=== PATIENT | female | born 1945 | race Native Hawaiian/Other Pacific Islander ===

== ENCOUNTER 2017-07-18 17:29 | Inpatient (IN) | payer MEDICARE ==
[2017-07-18 15:35] VITALS: BMI 23.3
[2017-07-18] MEDS: Hydrocortisone 2.5% (Rectal) CREAM PR SCH (21:41)
[2017-07-18] MEDS: Insulin Lispro (humaLOG) 100 Units/ml Inj SC SCH (21:44)
[2017-07-19] MEDS ORDERED: Dextrose 50% SYRINGE Inj (50 ml) IV PRN (07:04)
[2017-07-19] MEDS ORDERED: Glucagon Recombinant 1 mg Inj IM PRN (07:04)
[2017-07-19] MEDS: Hydrocortisone 2.5% (Rectal) CREAM PR SCH ×2 (07:07→17:18)
[2017-07-19] MEDS: Insulin Lispro (humaLOG) 100 Units/ml Inj SC SCH ×2 (07:11→21:20)
[2017-07-19 07:51] LABS: MEAN CELL VOLUME 89.3 fl (81.0-99.0); MEAN CORPUSCULAR HEMOGLOBIN 30.5 pg (27.0-31.0); MEAN CORPUSCULAR HGB CONC 34.2 g/dL (33.0-37.0); RED CELL DISTRIBUTION WIDTH 13.2 % (11.5-14.5)
[2017-07-19 08:25] LABS: BLOOD UREA NITROGEN 27 mg/dl (7-17); CALCIUM 8.8 mg/dL (8.4-10.2); CARBON DIOXIDE 24 mmol/L (22-30); CHLORIDE 100 mmol/L (98-107); GFR AFRICAN-AMERICAN > 60; GLUCOSE,RANDOM 252 mg/dL (65-105); POTASSIUM 4.3 MMOL/L (3.6-5.0); SODIUM 136 mmol/l (132-148)
[2017-07-19] MEDS: Enoxaparin 40 mg Syringe SC SCH (08:33)
[2017-07-19] MEDS: Pantoprazole 40 mg EC Tab PO SCH (08:34)
[2017-07-19] MEDS: Magnesium Oxide 400 mg Tab UD PO SCH ×2 (08:35→17:20)
[2017-07-19] MEDS: POLYETHYLENE GLYCOL 3350 17 GM/Dose PACKET PO SCH ×2 (08:35→17:20)
[2017-07-19] MEDS: Potassium Chloride 20 mEq ER Tab PO SCH (08:36)
[2017-07-19] MEDS: Proshield Plus GEL TOP SCH ×3 (10:00→21:21)
--- NOTE | 2017-07-19 17:42 | PCM.OPOC ---
Physiatry Overall Plan of Care - Overall Plan of Care Estimated Length of Stay in Weeks: 3 Rehab Impairment: Mobility, Gait, Speech, Balance, Coordination Etiologic Diagnosis: Cerebrovascular Accident Rehab/Medical Prognosis: Fair - Anticipated Interventions Physical Therapy:: Yes Occupational Therapy:: Yes Speech Therapy:: Yes Recreational Therapy:: Yes - Therapy Goals Bed Mobility: Supervision Ambulation: Supervision Functional Positional Changes:: Supervision - Discharge Plan Identification of Barriers to Discharge: Cognition, Home Situation Discharge Destination: Home
--- NOTE | 2017-07-19 17:44 | CP.PCM.CON ---
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 Review of Systems - Constitutional Constitutional: absent: Anorexia, Chills - EENT Eyes: absent: Change in Vision Ears: absent: Decreased Hearing Nose/Mouth/Throat: absent: Nasal Congestion - Cardiovascular Cardiovascular: absent: Chest Pain - Respiratory Respiratory: absent: Dyspnea - Gastrointestinal Gastrointestinal: absent: Abdominal Pain, Belching - Musculoskeletal Musculoskeletal: absent: Arthralgias, Back Pain - Integumentary Integumentary: absent: Bleeding Lesions - Neurological Neurological: Abnormal Gait, Weakness. absent: Abnormal Hearing, Abnormal Movements, Headaches Past Patient History - Infectious Disease Hx of Infectious Diseases: None - Past Medical History & Family History Past Medical History?: Yes - Past Social History Smoking Status: Never Smoked Alcohol: None Drugs: Denies Home Situation {Lives}: Alone (4 steps) - CARDIAC Hx Hypertension: Yes - PULMONARY Hx Chronic Obstructive Pulmonary Disease (COPD): No - NEUROLOGICAL HX Cerebrovascular Accident: Yes Hx Syncope: Yes - HEENT Hx HEENT Problems: Yes Other/Comment: R eye lasik sx, wears glasses - RENAL Hx Chronic Kidney Disease: No Hx Renal Failure: No - ENDOCRINE/METABOLIC Hx Diabetes Mellitus Type 2: Yes - HEMATOLOGICAL/ONCOLOGICAL Hx Blood Disorders: No Hx AIDS: No Hx Human Immunodeficiency Virus (HIV): No - INTEGUMENTARY Hx Dermatological Problems: No - MUSCULOSKELETAL/RHEUMATOLOGICAL Hx Musculoskeletal Disorders: Yes Hx Arthritis: Yes Hx Falls: No Hx Unsteady Gait: Yes - GASTROINTESTINAL Hx Gastrointestinal Disorders: Yes Hx Constipation: Yes Hx Hemorrhoids: Yes - GENITOURINARY/GYNECOLOGICAL Hx Genitourinary Disorders: No Hx Incontinence: Yes (Post CVA) - PSYCHIATRIC Hx Psychophysiologic Disorder: No Hx Substance Use: No - SURGICAL HISTORY Hx Surgeries: Yes Hx Appendectomy: Yes Hx Cardiac Catheterization: Yes Hx Section: Yes Hx Coronary Stent: Yes Hx Eye Surgery: Yes (R eye lasik sx) - ANESTHESIA Hx Anesthesia: Yes Hx Anesthesia Reactions: No Hx Malignant Hyperthermia: No Has any member of the family had a problem w/ anesthesia?: No Meds Allergies/Adverse Reactions: Allergies Allergy/AdvReac Type Severity Reaction Status Date / Time No Known Allergies Allergy Verified 07/14/17 12:31 - Medications Medications: Current Medications Aspirin (Aspirin Chewable) 81 mg PO DAILY [facility] Last Admin: 07/19/17 08:34 Dose: 81 mg Atorvastatin Calcium (Lipitor) 80 mg PO HS [facility] Last Admin: 07/18/17 21:43 Dose: 80 mg Carvedilol (Coreg) 3.125 mg PO DAILY [facility] Last Admin: 07/19/17 08:35 Dose: 3.125 mg Clopidogrel Bisulfate (Plavix) 75 mg PO DAILY [facility] Last Admin: 07/19/17 08:35 Dose: 75 mg Dextrose (Dextrose 50% Inj) 0 ml IV STAT PRN; Protocol PRN Reason: Hypoglycemia Protocol Dextrose (Glutose 15) 0 gm PO ONCE PRN; Protocol PRN Reason: Hypoglycemia Protocol Dimethicone (Proshield Plus Skin Protectant) 1 applic TOP Q8 [facility] Last Admin: 07/19/17 17:17 Dose: 1 applic Docusate Sodium (Colace) 100 mg PO DAILY [facility] Last Admin: 07/19/17 08:34 Dose: 100 mg Enoxaparin Sodium (Lovenox) 40 mg SC DAILY [facility] PRN Reason: Protocol Last Admin: 07/19/17 08:33 Dose: 40 mg Furosemide (Lasix) 20 mg PO DAILY [facility] Last Admin: 07/19/17 08:33 Dose: 20 mg Glucagon (Glucagen Diagnostic Kit) 0 mg IM STAT PRN; Protocol PRN Reason: Hypoglycemia Protocol Hydralazine HCl (Apresoline) 10 mg PO TID PRN PRN Reason: SBP 160 AND ABOVE Hydrocortisone (Anusol-Hc) 1 applic [place] 0600,1800 [facility] Last Admin: 07/19/17 17:18 Dose: 1 applic Insulin Human Lispro (Humalog) 0 units SC 0600,2100 [facility] PRN Reason: Protocol Last Admin: 07/19/17 07:11 Dose: 3 units Losartan Potassium (Cozaar) 100 mg PO DAILY [facility] Last Admin: 07/19/17 08:35 Dose: 100 mg Magnesium Oxide (Mag-Ox) 400 mg PO BID [facility] Last Admin: 07/19/17 17:20 Dose: 400 mg Metformin HCl (Glucophage) 1,000 mg PO BIDWM [facility] Last Admin: 07/19/17 17:19 Dose: 1,000 mg Pantoprazole Sodium (Protonix Ec Tab) 40 mg PO DAILY [facility] Last Admin: 07/19/17 08:34 Dose: 40 mg Polyethylene Glycol (Miralax) 17 gm PO BID [facility] Last Admin: 07/19/17 17:20 Dose: Not Given Potassium Chloride (K-Dur 20 Meq Er Tab) 20 meq PO BRK [facility] Last Admin: 07/19/17 08:36 Dose: 20 meq Sitagliptin Phosphate (Januvia) 100 mg PO DAILY [facility] Last Admin: 07/19/17 08:35 Dose: 100 mg Physical Exam - Constitutional Appears: Non-toxic, No Acute Distress - Head Exam Head Exam: ATRAUMATIC, NORMAL INSPECTION, NORMOCEPHALIC - Eye Exam Eye Exam: EOMI - ENT Exam ENT Exam: Mucous Membranes Moist - Respiratory Exam Respiratory Exam: NORMAL BREATHING PATTERN - Cardiovascular Exam Cardiovascular Exam: REGULAR RHYTHM - GI/Abdominal Exam GI & Abdominal Exam: absent: Distended, Firm - Extremities Exam Extremities exam: Negative for: calf tenderness, joint swelling - Neurological Exam Neurological exam: Alert, Oriented x3 - Psychiatric Exam Psychiatric exam: Flat Affect Results - Vital Signs Recent Vital Signs: Last Vital Signs Temp 98.4 F 07/19/17 08:46 Pulse 87 07/19/17 10:15 Resp 19 07/19/17 08:46 BP 147/92 H 07/19/17 10:15 Pulse Ox 98 07/19/17 08:52 - Labs Result Diagrams: 07/19/17 07:41 07/19/17 07:41 Labs: Laboratory Results - last 24 hr 07/18/17 07/19/17 07/19/17 21:05 07:02 07:41 WBC 9.0 RBC 4.37 Hgb 13.3 Hct 39.0 MCV 89.3 MCH 30.5 MCHC 34.2 RDW 13.2 Plt Count 273 Sodium Potassium Chloride Carbon Dioxide Anion Gap BUN Creatinine Est GFR ( Amer) Est GFR (Non-Af Amer) POC Glucose (mg/dL) 231 H 254 H Random Glucose Calcium 07/19/17 07/19/17 07:41 15:58 WBC RBC Hgb Hct MCV MCH MCHC RDW Plt Count Sodium 136 Potassium 4.3 Chloride 100 Carbon Dioxide 24 Anion Gap 16 BUN 27 H Creatinine 0.8 Est GFR ( Amer) > 60 Est GFR (Non-Af Amer) > 60 POC Glucose (mg/dL) 226 H Random Glucose 252 H Calcium 8.8 Assessment & Plan - Assessment and Plan (Free Text) Assessment: left LUIS distribution infarct with right HP PT/OT to continue to help increase functional independence Team conference for d/c planning Pain: controlled Vascular: no evidence of DVT GI: No evidence of constipation or diarrhea 3/5 right UE 2/5 right LE Patient is an excellent acute rehabilitation candidate and will have focused speech, PT, OT and recreational therapy to help facilitate a safe and appropriate d/c plan Impairment code: 01.2
[2017-07-20] MEDS: Hydrocortisone 2.5% (Rectal) CREAM PR SCH ×2 (06:46→17:36)
[2017-07-20] MEDS: Proshield Plus GEL TOP SCH ×3 (06:46→22:10)
[2017-07-20] MEDS: Insulin Lispro (humaLOG) 100 Units/ml Inj SC SCH ×2 (06:47→22:06)
[2017-07-20] MEDS: Enoxaparin 40 mg Syringe SC SCH (08:36)
[2017-07-20] MEDS: Magnesium Oxide 400 mg Tab UD PO SCH ×2 (08:37→17:36)
[2017-07-20] MEDS: Potassium Chloride 20 mEq ER Tab PO SCH (08:37)
[2017-07-20] MEDS: Pantoprazole 40 mg EC Tab PO SCH (08:38)
[2017-07-20] MEDS: POLYETHYLENE GLYCOL 3350 17 GM/Dose PACKET PO SCH ×2 (08:41→17:37)
[2017-07-20] MEDS: GlipiZIDE 5 mg SR Tab PO SCH (13:05)
--- NOTE | 2017-07-20 14:49 | CP.PCM.HP ---
<Tabitha Pandey - Last Filed: 07/20/17 15:28> History of Present Illness - History of Present Illness History of Present Illness: 72 y/o F with PMHx of DM type 2, HTN, HLD, who as per records recently suffered a left CVA with resultant right Hemiparesis affecting lower extremity more than her right upper extremity transferred from [facility] on 07/18/17. Patient was seen and examined with attending, Dr. Camarena, this morning. Patient feels well, and denies Cp, SOB, N/V, headaches, dizziness. Patient states a history of urinary incontinence, but denies urinary symptoms. Reports regular bowel movements. PMD: Dr. Camarena Present on Admission - Present on Admission Any Indicators Present on Admission: No History of DVT/PE: No Urinary Catheter: No Decubitus Ulcer Present: No Review of Systems - Review of Systems All systems: reviewed and no additional remarkable complaints except (all negative except as per HPI) Past Patient History - Infectious Disease Hx of Infectious Diseases: None - Past Medical History & Family History Past Medical History?: Yes - Past Social History Smoking Status: Never Smoked Alcohol: None Drugs: Denies Home Situation {Lives}: Alone (4 steps) - CARDIAC Hx Hypertension: Yes - PULMONARY Hx Chronic Obstructive Pulmonary Disease (COPD): No - NEUROLOGICAL HX Cerebrovascular Accident: Yes Hx Syncope: Yes - HEENT Hx HEENT Problems: Yes Other/Comment: R eye lasik sx, wears glasses - RENAL Hx Chronic Kidney Disease: No Hx Renal Failure: No - ENDOCRINE/METABOLIC Hx Diabetes Mellitus Type 2: Yes - HEMATOLOGICAL/ONCOLOGICAL Hx Blood Disorders: No Hx AIDS: No Hx Human Immunodeficiency Virus (HIV): No - INTEGUMENTARY Hx Dermatological Problems: No - MUSCULOSKELETAL/RHEUMATOLOGICAL Hx Musculoskeletal Disorders: Yes Hx Arthritis: Yes Hx Falls: No Hx Unsteady Gait: Yes - GASTROINTESTINAL Hx Gastrointestinal Disorders: Yes Hx Constipation: Yes Hx Hemorrhoids: Yes - GENITOURINARY/GYNECOLOGICAL Hx Genitourinary Disorders: No Hx Incontinence: Yes (Post CVA) - PSYCHIATRIC Hx Psychophysiologic Disorder: No Hx Substance Use: No - SURGICAL HISTORY Hx Surgeries: Yes Hx Appendectomy: Yes Hx Cardiac Catheterization: Yes Hx Section: Yes Hx Coronary Stent: Yes Hx Eye Surgery: Yes (R eye lasik sx) - ANESTHESIA Hx Anesthesia: Yes Hx Anesthesia Reactions: No Hx Malignant Hyperthermia: No Has any member of the family had a problem w/ anesthesia?: No Meds Allergies/Adverse Reactions: Allergies Allergy/AdvReac Type Severity Reaction Status Date / Time No Known Allergies Allergy Verified 07/14/17 12:31 Physical Exam - Constitutional Appears: Non-toxic, No Acute Distress - Eye Exam Eye Exam: EOMI, Normal appearance - ENT Exam ENT Exam: Mucous Membranes Moist - Respiratory Exam Respiratory Exam: Clear to Auscultation Bilateral, NORMAL BREATHING PATTERN. absent: Rales, Rhonchi, Wheezes, Respiratory Distress, Stridor - Cardiovascular Exam Cardiovascular Exam: REGULAR RHYTHM, RRR, +S1, +S2 - GI/Abdominal Exam GI & Abdominal Exam: Normal Bowel Sounds, Soft. absent: Distended, Rigid, Tenderness - Extremities Exam Extremities exam: Positive for: normal inspection. Negative for: calf tenderness, pedal edema - Back Exam Back exam: NORMAL INSPECTION. absent: CVA tenderness (L), CVA tenderness (R) - Neurological Exam Neurological exam: Abnormal Gait, Alert, Motor Sensory Deficit (right sided weakness), Oriented x3 - Skin Skin Exam: Dry, Intact, Normal Color Results - Vital Signs Recent Vital Signs: Last Vital Signs Temp 98.5 F 07/20/17 08:40 Pulse 80 07/20/17 08:40 Resp 20 07/20/17 08:40 BP 153/71 H 07/20/17 08:40 Pulse Ox 98 07/20/17 08:40 - Labs Result Diagrams: 07/19/17 07:41 07/19/17 07:41 Labs: Laboratory Results - last 24 hr 07/19/17 07/19/17 07/20/17 15:58 20:51 06:45 POC Glucose (mg/dL) 226 H 281 H 177 H Assessment & Plan (1) Status post CVA Assessment and Plan: PT eval and Treatment OT eval and treatment c/w aspirin, plavix c/w statin c/w BP control Status: Acute (2) Hypertension Assessment and Plan: c/w current management Status: Chronic (3) Diabetes mellitus type 2 in nonobese Assessment and Plan: c/w Metformin, and Januvia start Glipizide SR 5 mg PO daily Hypoglycemic protocol accucheck f/u hgbA1C, lipid profile, TSH Status: Chronic (4) DVT prophylaxis Assessment and Plan: Lovenox 40 mg SC daily Status: Acute - Date & Time Date: 07/20/17 Time: 08:05 <Sammy Camarena - Last Filed: 07/23/17 19:51> Results - Vital Signs Recent Vital Signs: Last Vital Signs Temp 96.4 F L 07/23/17 08:18 Pulse 79 07/23/17 08:20 Resp 19 07/23/17 08:18 BP 128/60 07/23/17 10:02 Pulse Ox 99 07/23/17 08:18 - Labs Result Diagrams: 07/22/17 06:26 07/22/17 06:26 Labs: Laboratory Results - last 24 hr 07/22/17 07/22/17 07/23/17 20:55 23:27 02:06 POC Glucose (mg/dL) 73 70 109 07/23/17 05:55 POC Glucose (mg/dL) 129 H Assessment & Plan - Assessment and Plan (Free Text) Plan: I was present during evaluation and discussed with Dr Pandey re plans of care and treatment. Sammy Camarena M.D.
[2017-07-21] MEDS: Hydrocortisone 2.5% (Rectal) CREAM PR SCH ×2 (06:54→18:01)
[2017-07-21] MEDS: Proshield Plus GEL TOP SCH ×3 (06:55→21:57)
[2017-07-21] MEDS: Insulin Lispro (humaLOG) 100 Units/ml Inj SC SCH ×2 (07:00→21:56)
[2017-07-21] MEDS: Enoxaparin 40 mg Syringe SC SCH (08:51)
[2017-07-21] MEDS: GlipiZIDE 5 mg SR Tab PO SCH (08:51)
[2017-07-21] MEDS: Potassium Chloride 20 mEq ER Tab PO SCH (08:52)
[2017-07-21] MEDS: POLYETHYLENE GLYCOL 3350 17 GM/Dose PACKET PO SCH ×2 (08:52→18:43)
[2017-07-21] MEDS: Pantoprazole 40 mg EC Tab PO SCH (08:55)
[2017-07-21] MEDS: Magnesium Oxide 400 mg Tab UD PO SCH ×2 (08:55→18:03)
--- NOTE | 2017-07-21 10:16 | CP.PCM.PN ---
<Tabitha Pandey - Last Filed: 07/21/17 14:10> Subjective - Date & Time of Evaluation Date of Evaluation: 07/21/17 Time of Evaluation: 08:45 - Subjective Subjective: Patient seen and examined in Acute Rehab unit this morning. Patient feels well, and denies any complains at this evaluation Afebrile, VS stable WNL No events overnight Objective - Vital Signs/Intake and Output Vital Signs (last 24 hours): Temp Pulse Resp BP Pulse Ox 98.0 F 64 20 133/63 98 07/21/17 08:42 07/21/17 08:53 07/21/17 08:42 07/21/17 08:53 07/21/17 08:42 - Medications Medications: Current Medications Aspirin (Aspirin Chewable) 81 mg PO DAILY [facility] Last Admin: 07/21/17 08:52 Dose: 81 mg Atorvastatin Calcium (Lipitor) 80 mg PO HS [facility] Last Admin: 07/20/17 22:10 Dose: 80 mg Carvedilol (Coreg) 3.125 mg PO DAILY [facility] Last Admin: 07/21/17 08:53 Dose: 3.125 mg Clopidogrel Bisulfate (Plavix) 75 mg PO DAILY [facility] Last Admin: 07/21/17 08:51 Dose: 75 mg Dextrose (Dextrose 50% Inj) 0 ml IV STAT PRN; Protocol PRN Reason: Hypoglycemia Protocol Dextrose (Glutose 15) 0 gm PO ONCE PRN; Protocol PRN Reason: Hypoglycemia Protocol Dimethicone (Proshield Plus Skin Protectant) 1 applic TOP Q8 [facility] Last Admin: 07/21/17 06:55 Dose: 1 applic Docusate Sodium (Colace) 100 mg PO DAILY [facility] Last Admin: 07/21/17 08:53 Dose: 100 mg Enoxaparin Sodium (Lovenox) 40 mg SC DAILY [facility] PRN Reason: Protocol Last Admin: 07/21/17 08:51 Dose: 40 mg Furosemide (Lasix) 20 mg PO DAILY [facility] Last Admin: 07/21/17 08:50 Dose: 20 mg Glipizide (Glucotrol Xl) 5 mg PO BRK [facility] Last Admin: 07/21/17 08:51 Dose: 5 mg Glucagon (Glucagen Diagnostic Kit) 0 mg IM STAT PRN; Protocol PRN Reason: Hypoglycemia Protocol Hydralazine HCl (Apresoline) 10 mg PO TID PRN PRN Reason: SBP 160 AND ABOVE Hydrocortisone (Anusol-Hc) 1 applic [place] 0600,1800 [facility] Last Admin: 07/21/17 06:54 Dose: 1 applic Hydrocortisone (Cortizone 1% Cream) 1 applic TOP DAILY [facility] Last Admin: 07/20/17 17:36 Dose: 1 applic Insulin Human Lispro (Humalog) 0 units SC 0600,2100 [facility] PRN Reason: Protocol Last Admin: 07/21/17 07:00 Dose: Not Given Losartan Potassium (Cozaar) 100 mg PO DAILY [facility] Last Admin: 07/20/17 08:36 Dose: 100 mg Magnesium Oxide (Mag-Ox) 400 mg PO BID [facility] Last Admin: 07/21/17 08:55 Dose: 400 mg Metformin HCl (Glucophage) 1,000 mg PO BIDWM [facility] Last Admin: 07/21/17 08:51 Dose: 1,000 mg Pantoprazole Sodium (Protonix Ec Tab) 40 mg PO DAILY [facility] Last Admin: 07/21/17 08:55 Dose: 40 mg Polyethylene Glycol (Miralax) 17 gm PO BID [facility] Last Admin: 07/21/17 08:52 Dose: 17 gm Potassium Chloride (K-Dur 20 Meq Er Tab) 20 meq PO BRK [facility] Last Admin: 07/21/17 08:52 Dose: 20 meq Sitagliptin Phosphate (Januvia) 100 mg PO DAILY [facility] Last Admin: 07/21/17 08:52 Dose: 100 mg - Labs Labs: 07/19/17 07:41 07/19/17 07:41 - Constitutional Appears: Non-toxic, No Acute Distress - ENT Exam ENT Exam: Mucous Membranes Moist - Respiratory Exam Respiratory Exam: Clear to Ausculation Bilateral, NORMAL BREATHING PATTERN - Cardiovascular Exam Cardiovascular Exam: REGULAR RHYTHM, +S1, +S2 - Extremities Exam Extremities Exam: Normal Inspection. absent: Calf Tenderness, Pedal Edema - Skin Skin Exam: Dry, Intact, Normal Color Assessment and Plan (1) Status post CVA Assessment & Plan: c/w PT and OT c/w Speech therapy c/w aspirin, plavix c/w statin c/w BP control Status: Acute (2) Hypertension Assessment & Plan: c/w current management Status: Chronic (3) Diabetes mellitus type 2 in nonobese Assessment & Plan: c/w Metformin, Januvia, and Glipizide SR Hypoglycemic protocol accucheck f/u hgbA1C, lipid profile, TSH Status: Chronic (4) DVT prophylaxis Assessment & Plan: Lovenox 40 mg SC daily Status: Acute <Sammy Camarena - Last Filed: 07/23/17 19:52> Objective - Vital Signs/Intake and Output Vital Signs (last 24 hours): Temp Pulse Resp BP Pulse Ox 96.4 F L 79 19 128/60 99 07/23/17 08:18 07/23/17 08:20 07/23/17 08:18 07/23/17 10:02 07/23/17 08:18 - Medications Medications: Current Medications Aspirin (Aspirin Chewable) 81 mg PO DAILY [facility] Last Admin: 07/23/17 10:02 Dose: 81 mg Atorvastatin Calcium (Lipitor) 80 mg PO HS [facility] Last Admin: 07/22/17 21:36 Dose: 80 mg Carvedilol (Coreg) 3.125 mg PO DAILY [facility] Last Admin: 07/23/17 08:20 Dose: 3.125 mg Clopidogrel Bisulfate (Plavix) 75 mg PO DAILY [facility] Last Admin: 07/23/17 10:03 Dose: 75 mg Dextrose (Dextrose 50% Inj) 0 ml IV STAT PRN; Protocol PRN Reason: Hypoglycemia Protocol Dextrose (Glutose 15) 0 gm PO ONCE PRN; Protocol PRN Reason: Hypoglycemia Protocol Dimethicone (Proshield Plus Skin Protectant) 1 applic TOP Q8 [facility] Last Admin: 07/23/17 14:02 Dose: 1 applic Docusate Sodium (Colace) 100 mg PO DAILY [facility] Last Admin: 07/23/17 08:19 Dose: 100 mg Enoxaparin Sodium (Lovenox) 40 mg SC DAILY [facility] PRN Reason: Protocol Last Admin: 07/23/17 08:22 Dose: 40 mg Furosemide (Lasix) 20 mg PO DAILY [facility] Last Admin: 07/23/17 08:20 Dose: 20 mg Glipizide (Glucotrol Xl) 5 mg PO BRK [facility] Last Admin: 07/23/17 08:19 Dose: 5 mg Glucagon (Glucagen Diagnostic Kit) 0 mg IM STAT PRN; Protocol PRN Reason: Hypoglycemia Protocol Hydrocortisone (Anusol-Hc) 1 applic [place] 0600,1800 [facility] Last Admin: 07/23/17 17:16 Dose: 1 applic Hydrocortisone (Cortizone 1% Cream) 1 applic TOP DAILY [facility] Last Admin: 07/23/17 08:22 Dose: 1 applic Insulin Human Lispro (Humalog) 0 units SC 0600,2100 [facility] PRN Reason: Protocol Last Admin: 07/23/17 07:15 Dose: Not Given Losartan Potassium (Cozaar) 100 mg PO DAILY [facility] Last Admin: 07/23/17 10:02 Dose: 100 mg Magnesium Oxide (Mag-Ox) 400 mg PO BID [facility] Last Admin: 07/23/17 16:01 Dose: 400 mg Metformin HCl (Glucophage) 500 mg PO TIDWM [facility] Last Admin: 07/23/17 16:01 Dose: 500 mg Ondansetron HCl (Zofran Tab) 4 mg PO Q6 PRN PRN Reason: Nausea/Vomiting Pantoprazole Sodium (Protonix Ec Tab) 40 mg PO DAILY [facility] Last Admin: 07/23/17 08:19 Dose: 40 mg Polyethylene Glycol (Miralax) 17 gm PO BID [facility] Last Admin: 07/23/17 16:03 Dose: 17 gm Potassium Chloride (K-Dur 20 Meq Er Tab) 20 meq PO BRK [facility] Last Admin: 07/23/17 08:20 Dose: 20 meq Sitagliptin Phosphate (Januvia) 100 mg PO DAILY [facility] Last Admin: 07/23/17 08:19 Dose: 100 mg - Labs Labs: 07/22/17 06:26 07/22/17 06:26 Assessment and Plan - Assessment and Plan (Free Text) Plan: I was present during evaluation and discussed with Dr Pandey re plans of care and treatment. Sammy Camarena M.D.
--- NOTE | 2017-07-21 15:27 | CP.PCM.PN ---
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 continue current care excellent acute rehab candidate Objective - Vital Signs/Intake and Output Vital Signs (last 24 hours): Temp Pulse Resp BP Pulse Ox 98.0 F 64 20 133/63 98 07/21/17 08:42 07/21/17 08:53 07/21/17 08:42 07/21/17 08:53 07/21/17 08:42 - Medications Medications: Current Medications Aspirin (Aspirin Chewable) 81 mg PO DAILY [facility] Last Admin: 07/21/17 08:52 Dose: 81 mg Atorvastatin Calcium (Lipitor) 80 mg PO HS [facility] Last Admin: 07/20/17 22:10 Dose: 80 mg Carvedilol (Coreg) 3.125 mg PO DAILY [facility] Last Admin: 07/21/17 08:53 Dose: 3.125 mg Clopidogrel Bisulfate (Plavix) 75 mg PO DAILY [facility] Last Admin: 07/21/17 08:51 Dose: 75 mg Dextrose (Dextrose 50% Inj) 0 ml IV STAT PRN; Protocol PRN Reason: Hypoglycemia Protocol Dextrose (Glutose 15) 0 gm PO ONCE PRN; Protocol PRN Reason: Hypoglycemia Protocol Dimethicone (Proshield Plus Skin Protectant) 1 applic TOP Q8 [facility] Last Admin: 07/21/17 06:55 Dose: 1 applic Docusate Sodium (Colace) 100 mg PO DAILY [facility] Last Admin: 07/21/17 08:53 Dose: 100 mg Enoxaparin Sodium (Lovenox) 40 mg SC DAILY [facility] PRN Reason: Protocol Last Admin: 07/21/17 08:51 Dose: 40 mg Furosemide (Lasix) 20 mg PO DAILY [facility] Last Admin: 07/21/17 08:50 Dose: 20 mg Glipizide (Glucotrol Xl) 5 mg PO BRK [facility] Last Admin: 07/21/17 08:51 Dose: 5 mg Glucagon (Glucagen Diagnostic Kit) 0 mg IM STAT PRN; Protocol PRN Reason: Hypoglycemia Protocol Hydralazine HCl (Apresoline) 10 mg PO TID PRN PRN Reason: SBP 160 AND ABOVE Hydrocortisone (Anusol-Hc) 1 applic [place] 0600,1800 [facility] Last Admin: 07/21/17 06:54 Dose: 1 applic Hydrocortisone (Cortizone 1% Cream) 1 applic TOP DAILY [facility] Last Admin: 07/20/17 17:36 Dose: 1 applic Insulin Human Lispro (Humalog) 0 units SC 0600,2100 [facility] PRN Reason: Protocol Last Admin: 07/21/17 07:00 Dose: Not Given Losartan Potassium (Cozaar) 100 mg PO DAILY [facility] Last Admin: 07/20/17 08:36 Dose: 100 mg Magnesium Oxide (Mag-Ox) 400 mg PO BID [facility] Last Admin: 07/21/17 08:55 Dose: 400 mg Metformin HCl (Glucophage) 1,000 mg PO BIDWM [facility] Last Admin: 07/21/17 08:51 Dose: 1,000 mg Pantoprazole Sodium (Protonix Ec Tab) 40 mg PO DAILY [facility] Last Admin: 07/21/17 08:55 Dose: 40 mg Polyethylene Glycol (Miralax) 17 gm PO BID [facility] Last Admin: 07/21/17 08:52 Dose: 17 gm Potassium Chloride (K-Dur 20 Meq Er Tab) 20 meq PO BRK [facility] Last Admin: 07/21/17 08:52 Dose: 20 meq Sitagliptin Phosphate (Januvia) 100 mg PO DAILY [facility] Last Admin: 07/21/17 08:52 Dose: 100 mg - Labs Labs: 07/19/17 07:41 07/19/17 07:41
[2017-07-22] MEDS: Proshield Plus GEL TOP SCH ×3 (05:37→21:38)
[2017-07-22] MEDS: Hydrocortisone 2.5% (Rectal) CREAM PR SCH ×2 (05:39→17:31)
[2017-07-22] MEDS: Insulin Lispro (humaLOG) 100 Units/ml Inj SC SCH ×2 (05:44→21:39)
[2017-07-22 06:33] LABS: HEMATOCRIT 38.1 % (34.0-47.0); MEAN CELL VOLUME 90.4 fl (81.0-99.0); MEAN CORPUSCULAR HEMOGLOBIN 29.8 pg (27.0-31.0); RED CELL DISTRIBUTION WIDTH 13.1 % (11.5-14.5); WHITE BLOOD COUNT 10.4 K/uL (4.8-10.8)
[2017-07-22 06:56] LABS: BLOOD UREA NITROGEN 34 mg/dl (7-17); CALCIUM 9.3 mg/dL (8.4-10.2); CARBON DIOXIDE 26 mmol/L (22-30); CHLORIDE 100 mmol/L (98-107); GFR AFRICAN-AMERICAN > 60; GLUCOSE,RANDOM 103 mg/dL (65-105); POTASSIUM 4.5 MMOL/L (3.6-5.0); SODIUM 136 mmol/l (132-148)
[2017-07-22] MEDS: GlipiZIDE 5 mg SR Tab PO SCH (08:00)
[2017-07-22] MEDS: Potassium Chloride 20 mEq ER Tab PO SCH (09:22)
[2017-07-22] MEDS: Magnesium Oxide 400 mg Tab UD PO SCH ×2 (09:23→16:16)
[2017-07-22] MEDS: POLYETHYLENE GLYCOL 3350 17 GM/Dose PACKET PO SCH ×2 (09:24→16:15)
[2017-07-22] MEDS: Pantoprazole 40 mg EC Tab PO SCH (09:24)
[2017-07-22] MEDS: Enoxaparin 40 mg Syringe SC SCH (09:24)
[2017-07-23] MEDS: Proshield Plus GEL TOP SCH ×3 (05:56→21:54)
[2017-07-23] MEDS: Hydrocortisone 2.5% (Rectal) CREAM PR SCH ×2 (05:59→17:16)
[2017-07-23] MEDS: Insulin Lispro (humaLOG) 100 Units/ml Inj SC SCH ×2 (07:15→21:54)
[2017-07-23] MEDS: Magnesium Oxide 400 mg Tab UD PO SCH ×2 (08:18→16:01)
[2017-07-23] MEDS: GlipiZIDE 5 mg SR Tab PO SCH (08:19)
[2017-07-23] MEDS: Pantoprazole 40 mg EC Tab PO SCH (08:19)
[2017-07-23] MEDS: Potassium Chloride 20 mEq ER Tab PO SCH (08:20)
[2017-07-23] MEDS: Enoxaparin 40 mg Syringe SC SCH (08:22)
[2017-07-23] MEDS: POLYETHYLENE GLYCOL 3350 17 GM/Dose PACKET PO SCH ×2 (08:29→16:03)
--- NOTE | 2017-07-23 11:26 | RAD ---
HISTORY: vomitting COMPARISON: No prior. FINDINGS: BOWEL: Normal. No obstruction. No free air. BONES: Normal. OTHER FINDINGS: None. IMPRESSION: No active disease.
--- NOTE | 2017-07-23 19:57 | CP.PCM.PN ---
Subjective - Date & Time of Evaluation Date of Evaluation: 07/22/17 Time of Evaluation: 09:00 - Subjective Subjective: Patient remains stable Has some vomiting has minimal epigastric pain Has no chest pain or SOB. Objective - Vital Signs/Intake and Output Vital Signs (last 24 hours): Temp Pulse Resp BP Pulse Ox 96.4 F L 79 19 128/60 99 07/23/17 08:18 07/23/17 08:20 07/23/17 08:18 07/23/17 10:02 07/23/17 08:18 - Medications Medications: Current Medications Aspirin (Aspirin Chewable) 81 mg PO DAILY [facility] Last Admin: 07/23/17 10:02 Dose: 81 mg Atorvastatin Calcium (Lipitor) 80 mg PO HS [facility] Last Admin: 07/22/17 21:36 Dose: 80 mg Carvedilol (Coreg) 3.125 mg PO DAILY [facility] Last Admin: 07/23/17 08:20 Dose: 3.125 mg Clopidogrel Bisulfate (Plavix) 75 mg PO DAILY [facility] Last Admin: 07/23/17 10:03 Dose: 75 mg Dextrose (Dextrose 50% Inj) 0 ml IV STAT PRN; Protocol PRN Reason: Hypoglycemia Protocol Dextrose (Glutose 15) 0 gm PO ONCE PRN; Protocol PRN Reason: Hypoglycemia Protocol Dimethicone (Proshield Plus Skin Protectant) 1 applic TOP Q8 [facility] Last Admin: 07/23/17 14:02 Dose: 1 applic Docusate Sodium (Colace) 100 mg PO DAILY [facility] Last Admin: 07/23/17 08:19 Dose: 100 mg Enoxaparin Sodium (Lovenox) 40 mg SC DAILY [facility] PRN Reason: Protocol Last Admin: 07/23/17 08:22 Dose: 40 mg Furosemide (Lasix) 20 mg PO DAILY [facility] Last Admin: 07/23/17 08:20 Dose: 20 mg Glipizide (Glucotrol Xl) 5 mg PO BRK [facility] Last Admin: 07/23/17 08:19 Dose: 5 mg Glucagon (Glucagen Diagnostic Kit) 0 mg IM STAT PRN; Protocol PRN Reason: Hypoglycemia Protocol Hydrocortisone (Anusol-Hc) 1 applic [place] 0600,1800 [facility] Last Admin: 07/23/17 17:16 Dose: 1 applic Hydrocortisone (Cortizone 1% Cream) 1 applic TOP DAILY [facility] Last Admin: 07/23/17 08:22 Dose: 1 applic Insulin Human Lispro (Humalog) 0 units SC 0600,2100 [facility] PRN Reason: Protocol Last Admin: 07/23/17 07:15 Dose: Not Given Losartan Potassium (Cozaar) 100 mg PO DAILY [facility] Last Admin: 07/23/17 10:02 Dose: 100 mg Magnesium Oxide (Mag-Ox) 400 mg PO BID [facility] Last Admin: 07/23/17 16:01 Dose: 400 mg Metformin HCl (Glucophage) 500 mg PO TIDWM [facility] Last Admin: 07/23/17 16:01 Dose: 500 mg Ondansetron HCl (Zofran Tab) 4 mg PO Q6 PRN PRN Reason: Nausea/Vomiting Pantoprazole Sodium (Protonix Ec Tab) 40 mg PO DAILY [facility] Last Admin: 07/23/17 08:19 Dose: 40 mg Polyethylene Glycol (Miralax) 17 gm PO BID [facility] Last Admin: 07/23/17 16:03 Dose: 17 gm Potassium Chloride (K-Dur 20 Meq Er Tab) 20 meq PO BRK [facility] Last Admin: 07/23/17 08:20 Dose: 20 meq Sitagliptin Phosphate (Januvia) 100 mg PO DAILY [facility] Last Admin: 07/23/17 08:19 Dose: 100 mg - Labs Labs: 07/22/17 06:26 07/22/17 06:26 - Head Exam Head Exam: NORMAL INSPECTION - Eye Exam Eye Exam: Normal appearance - ENT Exam ENT Exam: Mucous Membranes Moist - Respiratory Exam Respiratory Exam: Clear to Ausculation Bilateral - Cardiovascular Exam Cardiovascular Exam: REGULAR RHYTHM - GI/Abdominal Exam GI & Abdominal Exam: Normal Bowel Sounds - Neurological Exam Neurological Exam: Awake, Oriented x3 Assessment and Plan (1) Gait abnormality Status: Acute (2) Gastritis Status: Acute (3) Status post CVA Status: Acute (4) Diabetes mellitus type 2 in nonobese Status: Chronic (5) Hypertension Status: Chronic (6) Dysphagia Status: Chronic - Assessment and Plan (Free Text) Plan: Con tmeds Zofran protonix if continues will hold metformin
--- NOTE | 2017-07-23 20:00 | CP.PCM.PN ---
Subjective - Date & Time of Evaluation Date of Evaluation: 07/23/17 Time of Evaluation: 10:30 - Subjective Subjective: Patient feels a lot better today Patient has been on Metformin ER 750 bid at home She is on regular metformin in the hospital which may be causing her GI irritation. Objective - Vital Signs/Intake and Output Vital Signs (last 24 hours): Temp Pulse Resp BP Pulse Ox 96.4 F L 79 19 128/60 99 07/23/17 08:18 07/23/17 08:20 07/23/17 08:18 07/23/17 10:02 07/23/17 08:18 - Medications Medications: Current Medications Aspirin (Aspirin Chewable) 81 mg PO DAILY [facility] Last Admin: 07/23/17 10:02 Dose: 81 mg Atorvastatin Calcium (Lipitor) 80 mg PO HS [facility] Last Admin: 07/22/17 21:36 Dose: 80 mg Carvedilol (Coreg) 3.125 mg PO DAILY [facility] Last Admin: 07/23/17 08:20 Dose: 3.125 mg Clopidogrel Bisulfate (Plavix) 75 mg PO DAILY [facility] Last Admin: 07/23/17 10:03 Dose: 75 mg Dextrose (Dextrose 50% Inj) 0 ml IV STAT PRN; Protocol PRN Reason: Hypoglycemia Protocol Dextrose (Glutose 15) 0 gm PO ONCE PRN; Protocol PRN Reason: Hypoglycemia Protocol Dimethicone (Proshield Plus Skin Protectant) 1 applic TOP Q8 [facility] Last Admin: 07/23/17 14:02 Dose: 1 applic Docusate Sodium (Colace) 100 mg PO DAILY [facility] Last Admin: 07/23/17 08:19 Dose: 100 mg Enoxaparin Sodium (Lovenox) 40 mg SC DAILY [facility] PRN Reason: Protocol Last Admin: 07/23/17 08:22 Dose: 40 mg Furosemide (Lasix) 20 mg PO DAILY [facility] Last Admin: 07/23/17 08:20 Dose: 20 mg Glipizide (Glucotrol Xl) 5 mg PO BRK [facility] Last Admin: 07/23/17 08:19 Dose: 5 mg Glucagon (Glucagen Diagnostic Kit) 0 mg IM STAT PRN; Protocol PRN Reason: Hypoglycemia Protocol Hydrocortisone (Anusol-Hc) 1 applic [place] 0600,1800 [facility] Last Admin: 07/23/17 17:16 Dose: 1 applic Hydrocortisone (Cortizone 1% Cream) 1 applic TOP DAILY [facility] Last Admin: 07/23/17 08:22 Dose: 1 applic Insulin Human Lispro (Humalog) 0 units [place] 0600,2100 [facility] PRN Reason: Protocol Last Admin: 07/23/17 07:15 Dose: Not Given Losartan Potassium (Cozaar) 100 mg PO DAILY [facility] Last Admin: 07/23/17 10:02 Dose: 100 mg Magnesium Oxide (Mag-Ox) 400 mg PO BID [facility] Last Admin: 07/23/17 16:01 Dose: 400 mg Metformin HCl (Glucophage) 500 mg PO TIDWM [facility] Last Admin: 07/23/17 16:01 Dose: 500 mg Ondansetron HCl (Zofran Tab) 4 mg PO Q6 PRN PRN Reason: Nausea/Vomiting Pantoprazole Sodium (Protonix Ec Tab) 40 mg PO DAILY [facility] Last Admin: 07/23/17 08:19 Dose: 40 mg Polyethylene Glycol (Miralax) 17 gm PO BID [facility] Last Admin: 07/23/17 16:03 Dose: 17 gm Potassium Chloride (K-Dur 20 Meq Er Tab) 20 meq PO BRK [facility] Last Admin: 07/23/17 08:20 Dose: 20 meq Sitagliptin Phosphate (Januvia) 100 mg PO DAILY [facility] Last Admin: 07/23/17 08:19 Dose: 100 mg - Labs Labs: 07/22/17 06:26 07/22/17 06:26 - Head Exam Head Exam: NORMAL INSPECTION - Eye Exam Eye Exam: Normal appearance - ENT Exam ENT Exam: Mucous Membranes Moist - Neck Exam Neck Exam: Normal Inspection - Respiratory Exam Respiratory Exam: Clear to Ausculation Bilateral - Cardiovascular Exam Cardiovascular Exam: REGULAR RHYTHM - GI/Abdominal Exam GI & Abdominal Exam: Normal Bowel Sounds - Neurological Exam Neurological Exam: Awake, Oriented x3 - Psychiatric Exam Psychiatric exam: Normal Mood Assessment and Plan (1) Gait abnormality Status: Acute (2) Gastritis Status: Acute (3) Status post CVA Status: Acute (4) Diabetes mellitus type 2 in nonobese Status: Chronic (5) Hypertension Status: Chronic (6) Dysphagia Status: Chronic - Assessment and Plan (Free Text) Plan: Cont meds Cont tx will hold Metformin will start home meds Metformin ER 750 bid cont meds cont protonix
[2017-07-24] MEDS: Insulin Lispro (humaLOG) 100 Units/ml Inj SC SCH ×2 (06:29→21:25)
[2017-07-24] MEDS: Proshield Plus GEL TOP SCH ×3 (06:30→21:28)
[2017-07-24] MEDS: Hydrocortisone 2.5% (Rectal) CREAM PR SCH ×2 (06:31→17:24)
[2017-07-24] MEDS: GlipiZIDE 5 mg SR Tab PO SCH (09:00)
[2017-07-24] MEDS: Potassium Chloride 20 mEq ER Tab PO SCH (09:00)
[2017-07-24] MEDS: Enoxaparin 40 mg Syringe SC SCH (09:01)
[2017-07-24] MEDS: Magnesium Oxide 400 mg Tab UD PO SCH (09:02)
[2017-07-24] MEDS: Pantoprazole 40 mg EC Tab PO SCH (09:03)
[2017-07-24] MEDS: POLYETHYLENE GLYCOL 3350 17 GM/Dose PACKET PO SCH (09:05)
[2017-07-25] MEDS: Insulin Lispro (humaLOG) 100 Units/ml Inj SC SCH ×2 (05:47→21:54)
[2017-07-25] MEDS: Proshield Plus GEL TOP SCH ×3 (06:13→21:54)
[2017-07-25] MEDS: Hydrocortisone 2.5% (Rectal) CREAM PR SCH ×2 (06:14→17:15)
[2017-07-25] MEDS: Pantoprazole 40 mg EC Tab PO SCH (08:56)
[2017-07-25] MEDS: GlipiZIDE 5 mg SR Tab PO SCH (08:58)
--- NOTE | 2017-07-25 11:10 | CP.PCM.PN ---
Subjective - Date & Time of Evaluation Date of Evaluation: 07/25/17 Time of Evaluation: 08:40 - Subjective Subjective: Patient seen and examined with attending Dr. Camarena in Acute rehab unit this morning. Denies any complains at this evaluation, but answering questions with few words or yes/no. Has been afebrile and rest of VS stable WNL no event overnight Objective - Vital Signs/Intake and Output Vital Signs (last 24 hours): Temp Pulse Resp BP Pulse Ox 98.2 F 79 19 137/78 99 07/25/17 09:17 07/25/17 09:17 07/25/17 09:17 07/25/17 09:17 07/25/17 09:17 - Medications Medications: Current Medications Aspirin (Aspirin Chewable) 81 mg PO DAILY [facility] Last Admin: 07/25/17 08:59 Dose: 81 mg Atorvastatin Calcium (Lipitor) 80 mg PO HS [facility] Last Admin: 07/24/17 21:28 Dose: 80 mg Carvedilol (Coreg) 3.125 mg PO DAILY [facility] Last Admin: 07/25/17 09:03 Dose: 3.125 mg Clopidogrel Bisulfate (Plavix) 75 mg PO DAILY [facility] Last Admin: 07/25/17 08:57 Dose: 75 mg Dextrose (Dextrose 50% Inj) 0 ml IV STAT PRN; Protocol PRN Reason: Hypoglycemia Protocol Dextrose (Glutose 15) 0 gm PO ONCE PRN; Protocol PRN Reason: Hypoglycemia Protocol Dimethicone (Proshield Plus Skin Protectant) 1 applic TOP Q8 [facility] Last Admin: 07/25/17 06:13 Dose: 1 applic Docusate Sodium (Colace) 100 mg PO DAILY [facility] Last Admin: 07/25/17 08:58 Dose: 100 mg Escitalopram Oxalate (Lexapro) 10 mg PO DAILY [facility] Last Admin: 07/25/17 08:58 Dose: 10 mg Furosemide (Lasix) 20 mg PO DAILY [facility] Last Admin: 07/25/17 08:57 Dose: 20 mg Glipizide (Glucotrol Xl) 5 mg PO BRK [facility] Last Admin: 07/25/17 08:58 Dose: 5 mg Glucagon (Glucagen Diagnostic Kit) 0 mg IM STAT PRN; Protocol PRN Reason: Hypoglycemia Protocol Hydrocortisone (Anusol-Hc) 1 applic [place] 0600,1800 [facility] Last Admin: 07/25/17 06:14 Dose: 1 applic Hydrocortisone (Cortizone 1% Cream) 1 applic TOP DAILY [facility] Last Admin: 07/25/17 09:03 Dose: 1 applic Insulin Human Lispro (Humalog) 0 units SC 0600,2100 [facility] PRN Reason: Protocol Last Admin: 07/25/17 05:47 Dose: Not Given Losartan Potassium (Cozaar) 100 mg PO DAILY [facility] Last Admin: 07/25/17 08:57 Dose: 100 mg Metformin HCl (Glucophage) 500 mg PO TIDWM [facility] Last Admin: 07/25/17 08:57 Dose: 500 mg Ondansetron HCl (Zofran Tab) 4 mg PO Q6 PRN PRN Reason: Nausea/Vomiting Last Admin: 07/24/17 09:04 Dose: 4 mg Pantoprazole Sodium (Protonix Ec Tab) 40 mg PO DAILY [facility] Last Admin: 07/25/17 08:56 Dose: 40 mg Sitagliptin Phosphate (Januvia) 100 mg PO DAILY [facility] Last Admin: 07/25/17 08:58 Dose: 100 mg - Labs Labs: 07/22/17 06:26 07/22/17 06:26 - Constitutional Appears: Non-toxic, No Acute Distress - Eye Exam Eye Exam: Normal appearance - ENT Exam ENT Exam: Mucous Membranes Moist - Respiratory Exam Respiratory Exam: Clear to Ausculation Bilateral, NORMAL BREATHING PATTERN. absent: Rales, Rhonchi, Wheezes, Stridor - Cardiovascular Exam Cardiovascular Exam: REGULAR RHYTHM, +S1, +S2 - GI/Abdominal Exam GI & Abdominal Exam: Soft, Normal Bowel Sounds. absent: Distended, Guarding, Rigid, Tenderness - Extremities Exam Extremities Exam: Normal Inspection. absent: Calf Tenderness, Pedal Edema - Neurological Exam Neurological Exam: Alert, Awake - Skin Skin Exam: Dry, Intact, Normal Color Assessment and Plan (1) Status post CVA Assessment & Plan: c/w current treatment Status: Acute (2) Hypertension Status: Chronic (3) Diabetes mellitus type 2 in nonobese Status: Chronic (4) DVT prophylaxis Status: Acute
--- NOTE | 2017-07-25 13:22 | PSY.TMCNF ---
Nursing - Vital Signs Vital Signs (Last 8 hours): Vital Signs 07/25/17 07/25/17 07/25/17 08:57 09:03 09:17 Temperature 98.2 F Pulse Rate 79 79 79 Respiratory 19 Rate Blood Pressure 137/78 137/78 137/78 O2 Sat by Pulse 99 Oximetry Pain: 0 - Medications/Other Issues Comment: Pt at moderate nutritional risk. goals: 1. Pt to consume 75-100% of meals. 2. Blood glucoses to be between 70-180 mg/dl. Follow-up due on 2016 - Bladder Management Bladder Pattern: Normal, Incontinent Voiding Method: Bedside Commode, Diaper - Bowel Management Bowel Pattern: Constipated - Goals/Time Frame Comments: Pt was brought into recreation room from the nursing station. Pt agreeable to participate in session. Pt's preferred language is Tagalog; however , pt can understand and speak maori well. Pt was able to identify her leisure interests such as reading,w atching television, shopping, and going to [employer]. Pt reported that she has four children, 2 live in [place] and two live out of the country. Pt stated that she has a nephew. 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 Pt participated in modified lorna card task and required min verbal cues at times for direction following and attention to task. Pt completed task well and returned to nursing station to eat dinner. RN and TOW MOTOR OPERATOR aware. Physical Therapy - Bed Mobility Bed Mobility: Maximum Assistance, Dependent - Transfers Sit to Stand: Maximum Assistance - Ambulation Level of Assistance: Dependent - Stair Negotiation Stairs: Level of Assistance: Not Tested - Standing Balance Static Stand: Maximal Assistance Dynamic Stand: Unable to assess/perform - Pain Comment: pain at buttocks, provided with specialized cushion - Insight/Carryover Insight/Carryover: Fair - Patient/Family Education Comment: Stroke recovery, balance, DME comepsnatory strategies, requires continued reinforcment - Assessment/Plan Assessment: Pt with limited communication throughout session, nursing reports she has not been talking with staff members, when asked if pt feels different she nods her head yes. Notified RN that pt with increased weakness during session at [facility], pt with limited participation in session. Recommend pt continue OT services to maximize RUE function, seated and standing balance, motor planning and endurance to increase independence with ADLs and transfers and decrease caregiver burden and falls risk - Goals Timeframe: 3 weeks Goals: MIN A UE Dressing. MIN A LE dressing. MIN A toileting. MIN A Toilet txfer. MIN A bathing. S grooming. S feeding - Provider Therapist: fabby License Number: [id number] Occupational Therapy - Arousal/Attention/Orientation Level of Consciousness: Awake, Alert Patient Orientation: Person, Place, Time - ADL/IADL Self Feeding: Verbal Cues, Set-up Help, Dependent Grooming: Maximum Assistance Dressing-Upper Extremity: Dependent Dressing-Lower Extremity: Dependent - Sitting Balance Static Sitting: Moderate Assistance Dynamic Sitting: Unable to assess/perform - Transfers Wheelchair to Bed Transfers: Dependent Toilet Transfers: Dependent Comment: unsafe for shower txfers - Wheelchair Management Level of Assistance: Dependent Distance (ft.): 0 - Upper Extremity Status Right Upper Extremity Comment: At initial eval AROM impaired grossly, ROM 2+/5 at shoulder 3-/5 grossly. However during 07/26 session pt with limited AROM, UE appears more hypotonic notified Dr. Camarena Left Upper Extremity Comment: ROM WFL, MMT grossly 3+/5 - Pain Comment: pain at buttocks, provided with specialized cushion - Insight/Carryover Insight/Carryover: Fair - Patient/Family Education Comment: Stroke recovery, balance, DME comepsnatory strategies, requires continued reinforcment - Assessment/Plan Assessment: Pt with limited communication throughout session, nursing reports she has not been talking with staff members, when asked if pt feels different she nods her head yes. Notified RN that pt with increased weakness during session at [facility], pt with limited participation in session. Recommend pt continue OT services to maximize RUE function, seated and standing balance, motor planning and endurance to increase independence with ADLs and transfers and decrease caregiver burden and falls risk - Goals Timeframe: 3 weeks Goals: MIN A UE Dressing. MIN A LE dressing. MIN A toileting. MIN A Toilet txfer. MIN A bathing. S grooming. S feeding - Provider Therapist: Nina Infante License Number: [id number] Speech Therapy - Consult Information Patient on Program: Yes Medical Diagnosis: CVA Treatment Diagnosis: mild-moderate cognitive deficits - Assessment Expressive Language Impairment: Mild Problem Solving Impairment: Moderate Comment: mild-moderate Memory Impairment: Moderate Comment: mild-moderate - Plan Assessment: Pt with limited communication throughout session, nursing reports she has not been talking with staff members, when asked if pt feels different she nods her head yes. Notified RN that pt with increased weakness during session at [facility], pt with limited participation in session. Recommend pt continue OT services to maximize RUE function, seated and standing balance, motor planning and endurance to increase independence with ADLs and transfers and decrease caregiver burden and falls risk - Provider Therapist: Bonita Berry License Number: [id number] Recreational Therapy - Participation Participation: Participates in Individual and/or Group Sessions - Activities Leisure Activities: Television - Socialization Level of Socialization: Initiates/interacts freely with care givers and peer - Assessment Assessment/Plan: Pt with limited communication throughout session, nursing reports she has not been talking with staff members, when asked if pt feels different she nods her head yes. Notified RN that pt with increased weakness during session at [facility], pt with limited participation in session. Recommend pt continue OT services to maximize RUE function, seated and standing balance, motor planning and endurance to increase independence with ADLs and transfers and decrease caregiver burden and falls risk - Provider Therapist: She Jimenez, [employer] #[id number] Nutrition - Current Diet Current Diet/ Supplement/ Feedings: Moderate consistent CHO heart healthy diet - Appetite Percent Meal Consumed: 50-74% - Assessment/Goals/Time Frame Assessment/Goals/Time Frame: Pt at moderate nutritional risk. goals: 1. Pt to consume 75-100% of meals. 2. Blood glucoses to be between 70-180 mg/dl. Follow-up due on 07/27/2017 - Provider Provider: Sera Queen RD Rehabilitation Plan - Treatment Plan Treatment Plan: Physical Therapy, Occupational Therapy, Speech, Dietary, Patient /Family Education - Discharge Plan Estimated Date of Discharge: 08/10/17 Discharge to: Subacute
--- NOTE | 2017-07-25 13:38 | CP.PCM.PN ---
Subjective - Date & Time of Evaluation Date of Evaluation: 07/25/17 Time of Evaluation: 13:37 - Subjective Subjective: Patient seen and is weaker than on admission minimal right shoulder strength and was anti-gravity on admission able to communicate better as well will get neuro follow up continue therapies Objective - Vital Signs/Intake and Output Vital Signs (last 24 hours): Temp Pulse Resp BP Pulse Ox 98.2 F 79 19 137/78 99 07/25/17 09:17 07/25/17 09:17 07/25/17 09:17 07/25/17 09:17 07/25/17 09:17 - Medications Medications: Current Medications Aspirin (Aspirin Chewable) 81 mg PO DAILY [facility] Last Admin: 07/25/17 08:59 Dose: 81 mg Atorvastatin Calcium (Lipitor) 80 mg PO HS [facility] Last Admin: 07/24/17 21:28 Dose: 80 mg Carvedilol (Coreg) 3.125 mg PO DAILY [facility] Last Admin: 07/25/17 09:03 Dose: 3.125 mg Clopidogrel Bisulfate (Plavix) 75 mg PO DAILY [facility] Last Admin: 07/25/17 08:57 Dose: 75 mg Dextrose (Dextrose 50% Inj) 0 ml IV STAT PRN; Protocol PRN Reason: Hypoglycemia Protocol Dextrose (Glutose 15) 0 gm PO ONCE PRN; Protocol PRN Reason: Hypoglycemia Protocol Dimethicone (Proshield Plus Skin Protectant) 1 applic TOP Q8 [facility] Last Admin: 07/25/17 06:13 Dose: 1 applic Docusate Sodium (Colace) 100 mg PO DAILY [facility] Last Admin: 07/25/17 08:58 Dose: 100 mg Escitalopram Oxalate (Lexapro) 10 mg PO DAILY [facility] Last Admin: 07/25/17 08:58 Dose: 10 mg Furosemide (Lasix) 20 mg PO DAILY [facility] Last Admin: 07/25/17 08:57 Dose: 20 mg Glipizide (Glucotrol Xl) 5 mg PO BRK [facility] Last Admin: 07/25/17 08:58 Dose: 5 mg Glucagon (Glucagen Diagnostic Kit) 0 mg IM STAT PRN; Protocol PRN Reason: Hypoglycemia Protocol Hydrocortisone (Anusol-Hc) 1 applic [place] 0600,1800 [facility] Last Admin: 07/25/17 06:14 Dose: 1 applic Hydrocortisone (Cortizone 1% Cream) 1 applic TOP DAILY [facility] Last Admin: 07/25/17 09:03 Dose: 1 applic Insulin Human Lispro (Humalog) 0 units [place] 0600,2100 [facility] PRN Reason: Protocol Last Admin: 07/25/17 05:47 Dose: Not Given Losartan Potassium (Cozaar) 100 mg PO DAILY [facility] Last Admin: 07/25/17 08:57 Dose: 100 mg Metformin HCl (Glucophage) 500 mg PO TIDWM [facility] Last Admin: 07/25/17 12:38 Dose: 500 mg Ondansetron HCl (Zofran Tab) 4 mg PO Q6 PRN PRN Reason: Nausea/Vomiting Last Admin: 07/24/17 09:04 Dose: 4 mg Pantoprazole Sodium (Protonix Ec Tab) 40 mg PO DAILY [facility] Last Admin: 07/25/17 08:56 Dose: 40 mg Sitagliptin Phosphate (Januvia) 100 mg PO DAILY [facility] Last Admin: 07/25/17 08:58 Dose: 100 mg - Labs Labs: 07/22/17 06:26 07/22/17 06:26
--- NOTE | 2017-07-25 18:52 | CP.PCM.CON ---
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 ) ASA /PLAVIX/STATIN/ARB DIABETIC CONTROL ADD SSRI AND SEDATION DVT PROPHYLAXI PT Past Patient History - Infectious Disease Hx of Infectious Diseases: None - Past Medical History & Family History Past Medical History?: Yes - Past Social History Smoking Status: Never Smoked Alcohol: None Drugs: Denies Home Situation {Lives}: Alone (4 steps) - CARDIAC Hx Hypertension: Yes - PULMONARY Hx Chronic Obstructive Pulmonary Disease (COPD): No - NEUROLOGICAL HX Cerebrovascular Accident: Yes Hx Syncope: Yes - HEENT Hx HEENT Problems: Yes Other/Comment: R eye lasik sx, wears glasses - RENAL Hx Chronic Kidney Disease: No Hx Renal Failure: No - ENDOCRINE/METABOLIC Hx Diabetes Mellitus Type 2: Yes - HEMATOLOGICAL/ONCOLOGICAL Hx Blood Disorders: No Hx AIDS: No Hx Human Immunodeficiency Virus (HIV): No - INTEGUMENTARY Hx Dermatological Problems: No - MUSCULOSKELETAL/RHEUMATOLOGICAL Hx Musculoskeletal Disorders: Yes Hx Arthritis: Yes Hx Falls: No Hx Unsteady Gait: Yes - GASTROINTESTINAL Hx Gastrointestinal Disorders: Yes Hx Constipation: Yes Hx Hemorrhoids: Yes - GENITOURINARY/GYNECOLOGICAL Hx Genitourinary Disorders: No Hx Incontinence: Yes (Post CVA) - PSYCHIATRIC Hx Psychophysiologic Disorder: No Hx Substance Use: No - SURGICAL HISTORY Hx Surgeries: Yes Hx Appendectomy: Yes Hx Cardiac Catheterization: Yes Hx Section: Yes Hx Coronary Stent: Yes Hx Eye Surgery: Yes (R eye lasik sx) - ANESTHESIA Hx Anesthesia: Yes Hx Anesthesia Reactions: No Hx Malignant Hyperthermia: No Has any member of the family had a problem w/ anesthesia?: No Meds Allergies/Adverse Reactions: Allergies Allergy/AdvReac Type Severity Reaction Status Date / Time No Known Allergies Allergy Verified 07/14/17 12:31 - Medications Medications: Current Medications Aspirin (Aspirin Chewable) 81 mg PO DAILY [facility] Last Admin: 07/25/17 08:59 Dose: 81 mg Atorvastatin Calcium (Lipitor) 80 mg PO HS [facility] Carvedilol (Coreg) 3.125 mg PO DAILY [facility] Last Admin: 07/25/17 09:03 Dose: 3.125 mg Clopidogrel Bisulfate (Plavix) 75 mg PO DAILY [facility] Last Admin: 07/25/17 08:57 Dose: 75 mg Dextrose (Dextrose 50% Inj) 0 ml IV STAT PRN; Protocol PRN Reason: Hypoglycemia Protocol Dextrose (Glutose 15) 0 gm PO ONCE PRN; Protocol PRN Reason: Hypoglycemia Protocol Dimethicone (Proshield Plus Skin Protectant) 1 applic TOP Q8 [facility] Last Admin: 07/25/17 14:00 Dose: 1 applic Docusate Sodium (Colace) 100 mg PO DAILY [facility] Last Admin: 07/25/17 08:58 Dose: 100 mg Escitalopram Oxalate (Lexapro) 10 mg PO DAILY [facility] Last Admin: 07/25/17 08:58 Dose: 10 mg Furosemide (Lasix) 20 mg PO DAILY [facility] Last Admin: 07/25/17 08:57 Dose: 20 mg Glipizide (Glucotrol Xl) 5 mg PO BRK [facility] Last Admin: 07/25/17 08:58 Dose: 5 mg Glucagon (Glucagen Diagnostic Kit) 0 mg IM STAT PRN; Protocol PRN Reason: Hypoglycemia Protocol Hydrocortisone (Anusol-Hc) 1 applic [place] 0600,1800 [facility] Last Admin: 07/25/17 17:15 Dose: 1 applic Hydrocortisone (Cortizone 1% Cream) 1 applic TOP DAILY [facility] Last Admin: 07/25/17 09:03 Dose: 1 applic Insulin Human Lispro (Humalog) 0 units SC 0600,2100 [facility] PRN Reason: Protocol Last Admin: 07/25/17 05:47 Dose: Not Given Losartan Potassium (Cozaar) 100 mg PO DAILY [facility] Last Admin: 07/25/17 08:57 Dose: 100 mg Metformin HCl (Glucophage) 500 mg PO TIDWM [facility] Last Admin: 07/25/17 17:15 Dose: 500 mg Ondansetron HCl (Zofran Tab) 4 mg PO Q6 PRN PRN Reason: Nausea/Vomiting Last Admin: 07/24/17 09:04 Dose: 4 mg Pantoprazole Sodium (Protonix Ec Tab) 40 mg PO DAILY [facility] Last Admin: 07/25/17 08:56 Dose: 40 mg Sitagliptin Phosphate (Januvia) 100 mg PO DAILY [facility] Last Admin: 07/25/17 08:58 Dose: 100 mg Results - Vital Signs Recent Vital Signs: Last Vital Signs Temp 98.2 F 07/25/17 15:00 Pulse 79 07/25/17 15:00 Resp 20 07/25/17 15:00 BP 137/78 07/25/17 15:00 Pulse Ox 99 07/25/17 09:17 - Labs Result Diagrams: 07/22/17 06:26 07/22/17 06:26 Labs: Laboratory Results - last 24 hr 07/24/17 07/25/17 20:48 05:38 POC Glucose (mg/dL) 72 125 H
--- NOTE | 2017-07-25 22:08 | CP.PCM.PN ---
Subjective - Date & Time of Evaluation Date of Evaluation: 07/24/17 Time of Evaluation: 10:00 - Subjective Subjective: Patient remains stable Accucheck has been stable Refuses to talk Participate in therapy Objective - Vital Signs/Intake and Output Vital Signs (last 24 hours): Temp Pulse Resp BP Pulse Ox 98.6 F 72 20 159/74 H 98 07/25/17 19:58 07/25/17 19:58 07/25/17 19:58 07/25/17 19:58 07/25/17 19:58 - Medications Medications: Current Medications Aspirin (Aspirin Chewable) 81 mg PO DAILY [facility] Last Admin: 07/25/17 08:59 Dose: 81 mg Atorvastatin Calcium (Lipitor) 80 mg PO HS [facility] Last Admin: 07/25/17 21:53 Dose: 80 mg Carvedilol (Coreg) 3.125 mg PO DAILY [facility] Last Admin: 07/25/17 09:03 Dose: 3.125 mg Clopidogrel Bisulfate (Plavix) 75 mg PO DAILY [facility] Last Admin: 07/25/17 08:57 Dose: 75 mg Dextrose (Dextrose 50% Inj) 0 ml IV STAT PRN; Protocol PRN Reason: Hypoglycemia Protocol Dextrose (Glutose 15) 0 gm PO ONCE PRN; Protocol PRN Reason: Hypoglycemia Protocol Dimethicone (Proshield Plus Skin Protectant) 1 applic TOP Q8 [facility] Last Admin: 07/25/17 21:54 Dose: 1 applic Docusate Sodium (Colace) 100 mg PO DAILY [facility] Last Admin: 07/25/17 08:58 Dose: 100 mg Escitalopram Oxalate (Lexapro) 10 mg PO DAILY [facility] Last Admin: 07/25/17 08:58 Dose: 10 mg Escitalopram Oxalate (Lexapro) 20 mg PO DAILY [facility] Furosemide (Lasix) 20 mg PO DAILY [facility] Last Admin: 07/25/17 08:57 Dose: 20 mg Glipizide (Glucotrol Xl) 5 mg PO BRK [facility] Last Admin: 07/25/17 08:58 Dose: 5 mg Glucagon (Glucagen Diagnostic Kit) 0 mg IM STAT PRN; Protocol PRN Reason: Hypoglycemia Protocol Hydrocortisone (Anusol-Hc) 1 applic [place] 0600,1800 [facility] Last Admin: 07/25/17 17:15 Dose: 1 applic Hydrocortisone (Cortizone 1% Cream) 1 applic TOP DAILY [facility] Last Admin: 07/25/17 09:03 Dose: 1 applic Insulin Human Lispro (Humalog) 0 units SC 0600,2100 [facility] PRN Reason: Protocol Last Admin: 07/25/17 21:54 Dose: Not Given Losartan Potassium (Cozaar) 100 mg PO DAILY [facility] Last Admin: 07/25/17 08:57 Dose: 100 mg Metformin HCl (Glucophage) 500 mg PO TIDWM [facility] Last Admin: 07/25/17 17:15 Dose: 500 mg Ondansetron HCl (Zofran Tab) 4 mg PO Q6 PRN PRN Reason: Nausea/Vomiting Last Admin: 07/24/17 09:04 Dose: 4 mg Pantoprazole Sodium (Protonix Ec Tab) 40 mg PO DAILY [facility] Last Admin: 07/25/17 08:56 Dose: 40 mg Sitagliptin Phosphate (Januvia) 100 mg PO DAILY [facility] Last Admin: 07/25/17 08:58 Dose: 100 mg Temazepam (Restoril) 15 mg PO HS PRN PRN Reason: Sedation - Labs Labs: 07/22/17 06:26 07/22/17 06:26 - Head Exam Head Exam: NORMAL INSPECTION - Eye Exam Eye Exam: Normal appearance - Respiratory Exam Respiratory Exam: NORMAL BREATHING PATTERN - Cardiovascular Exam Cardiovascular Exam: REGULAR RHYTHM - GI/Abdominal Exam GI & Abdominal Exam: Normal Bowel Sounds - Neurological Exam Neurological Exam: Awake, CN II-XII Intact, Oriented x3 - Psychiatric Exam Psychiatric exam: Normal Mood Assessment and Plan (1) Gait abnormality Status: Acute (2) Gastritis Status: Acute (3) Status post CVA Status: Acute (4) Diabetes mellitus type 2 in nonobese Status: Chronic (5) Hypertension Status: Chronic (6) Dysphagia Status: Chronic - Assessment and Plan (Free Text) Plan: Cont meds Cont tx Cont PT psych eval
[2017-07-26] MEDS: Hydrocortisone 2.5% (Rectal) CREAM PR SCH ×2 (06:15→17:10)
[2017-07-26] MEDS: Proshield Plus GEL TOP SCH ×3 (06:15→21:20)
[2017-07-26] MEDS: Insulin Lispro (humaLOG) 100 Units/ml Inj SC SCH ×2 (06:16→21:00)
--- NOTE | 2017-07-26 06:59 | CON ---
DATE: Unit #: [id number] REASON FOR THE CONSULTATION: Stroke. CHIEF COMPLAINT: The patient was brought in from [facility] to Rehab Unit in [facility] for her stroke. She was admitted in [facility] on 07/14/2017 with a history of recurrent leg weakness and gait disturbances. Following hospitalization, she had a workup, which showed left LUIS territory ischemia/infarct, had been worked up and had been transferred to Rehab Unit for further management. HISTORY OF PRESENT ILLNESS: Ms. Jazmyn Martinez is a 72-year-old right-handed [place] female, in usual state of health, developed about 2 to 3 days history of knee buckling and leg weakness associating with the dizziness. She was admitted at [facility] on 07/14/2017, being worked up, which showed left LUIS territory ischemia, presenting with right leg more than arm weakness. Following completion of the workup, the patient was transferred to Rehab Center. She did not have any loss of consciousness. She did not have any focal involuntary movements. No history of bowel and bladder incontinence. PAST MEDICAL HISTORY: The patient had significant history of hypertension, diabetes mellitus, history of stroke in the past. PERSONAL HISTORY: Denies smoking, alcohol use. REVIEW OF SYSTEMS: A 12-point system being reviewed. From neuro, right-sided hemiplegia. MEDICATIONS: Aspirin, Colace, Coreg, Cozaar, Glucophage, Humalog, Januvia, Lexapro, Lipitor, Plavix, and Zofran. PHYSICAL EXAMINATION: VITAL SIGNS: Blood pressure 137/78, mean arterial pressure of 97, respiratory rate 16, and temperature is afebrile. NECK: Supple. No carotid bruit. HEART: Sounds are regular. CHEST: Fair air entry. EXTREMITIES: No edema in legs. Occasional swelling. NEUROLOGIC EXAMINATION: Mental status examination: She is awake, alert, and oriented to person, place and time. She seems to be depressed. Speech is very short sentence. She follows 1 to 2-step command. No right and left confusion. Speech is mildly dysarthric. Cranial nerve examination: Visual souza are intact. Pupils are reactive to light. Extraocular movements are normal. No nystagmus. No facial sensory deficit. No aphasia. Facial asymmetry is manifesting with the flattening of the right nasolabial fold. Hearing is normal. Tongue is midline. Good gag. Motor examination: On outstretched hand with eyes closed, significant drift is noted on the right arm. She could not be able to lift her right leg against the gravity; however, she could move the toes up and down. Sensory examination: Grossly intact. No cortical sensory loss; however, the patient was presenting with bilateral distal symmetric sensorimotor neuropathy. Coordination: Dysmetria proportionate to the weakness on the right side. Gait is deferred at this time. DIAGNOSTIC STUDIES: Her transfer notes from [facility] all have been reviewed. MRI of the brain, MR angiogram, and echocardiogram all have been reviewed. CONCLUSION: 1. Ms. Jazmyn Martinez is presenting with right hemiparesis involving leg more than her arm consistent with anterior cerebral artery territory ischemic process, large vessel disease. The workup, which had been reviewed and does not show a clear evidence of stroke. The patient can at present continue aspirin and Plavix with angiotensin receptor yvette and statin. 2. Lexapro dose can be increased for her depression. 3. Restoril can be given for sleep. 4. Active physical therapy. 5. The patient could be benefited to have transesophageal echocardiogram, telemetry, loop recording to assess her cardiac status for thromboembologenesis. 6. Diabetic control and the patient should have sleep study to rule out hidden sleep apnea. Daniele Sebastian MD MTDD
[2017-07-26] MEDS: GlipiZIDE 5 mg SR Tab PO SCH (08:31)
[2017-07-26] MEDS: Pantoprazole 40 mg EC Tab PO SCH (08:31)
--- NOTE | 2017-07-26 14:46 | CP.PCM.PN ---
Subjective - Date & Time of Evaluation Date of Evaluation: 07/26/17 Time of Evaluation: 14:41 - Subjective Subjective: Patient seen in room more interactive with staff today still quite flat affect denies pain continue current care Objective - Vital Signs/Intake and Output Vital Signs (last 24 hours): Temp Pulse Resp BP Pulse Ox 98.1 F 72 20 166/85 H 98 07/26/17 10:00 07/26/17 10:00 07/26/17 10:00 07/26/17 10:00 07/26/17 10:00 - Medications Medications: Current Medications Aspirin (Aspirin Chewable) 81 mg PO DAILY [facility] Last Admin: 07/26/17 08:32 Dose: 81 mg Atorvastatin Calcium (Lipitor) 80 mg PO HS [facility] Last Admin: 07/25/17 21:53 Dose: 80 mg Carvedilol (Coreg) 3.125 mg PO DAILY [facility] Last Admin: 07/26/17 08:31 Dose: 3.125 mg Clopidogrel Bisulfate (Plavix) 75 mg PO DAILY [facility] Last Admin: 07/26/17 08:30 Dose: 75 mg Dextrose (Dextrose 50% Inj) 0 ml IV STAT PRN; Protocol PRN Reason: Hypoglycemia Protocol Dextrose (Glutose 15) 0 gm PO ONCE PRN; Protocol PRN Reason: Hypoglycemia Protocol Dimethicone (Proshield Plus Skin Protectant) 1 applic TOP Q8 [facility] Last Admin: 07/26/17 06:15 Dose: 1 applic Docusate Sodium (Colace) 100 mg PO DAILY [facility] Last Admin: 07/26/17 08:31 Dose: 100 mg Escitalopram Oxalate (Lexapro) 20 mg PO DAILY [facility] Last Admin: 07/26/17 08:30 Dose: 20 mg Furosemide (Lasix) 20 mg PO DAILY [facility] Last Admin: 07/26/17 08:30 Dose: 20 mg Glipizide (Glucotrol Xl) 5 mg PO BRK [facility] Last Admin: 07/26/17 08:31 Dose: 5 mg Glucagon (Glucagen Diagnostic Kit) 0 mg IM STAT PRN; Protocol PRN Reason: Hypoglycemia Protocol Hydrocortisone (Anusol-Hc) 1 applic [place] 0600,1800 [facility] Last Admin: 07/26/17 06:15 Dose: 1 applic Hydrocortisone (Cortizone 1% Cream) 1 applic TOP DAILY [facility] Last Admin: 07/26/17 08:29 Dose: 1 applic Insulin Human Lispro (Humalog) 0 units SC 0600,2100 [facility] PRN Reason: Protocol Last Admin: 07/26/17 06:16 Dose: Not Given Losartan Potassium (Cozaar) 100 mg PO DAILY [facility] Last Admin: 07/26/17 08:30 Dose: 100 mg Metformin HCl (Glucophage) 500 mg PO TIDWM [facility] Last Admin: 07/26/17 12:46 Dose: 500 mg Ondansetron HCl (Zofran Tab) 4 mg PO Q6 PRN PRN Reason: Nausea/Vomiting Last Admin: 07/24/17 09:04 Dose: 4 mg Pantoprazole Sodium (Protonix Ec Tab) 40 mg PO DAILY [facility] Last Admin: 07/26/17 08:31 Dose: 40 mg Sitagliptin Phosphate (Januvia) 100 mg PO DAILY [facility] Last Admin: 07/26/17 08:31 Dose: 100 mg Temazepam (Restoril) 15 mg PO HS PRN PRN Reason: Sedation - Labs Labs: 07/22/17 06:26 07/22/17 06:26
--- NOTE | 2017-07-26 20:00 | CP.PCM.PN ---
Subjective - Date & Time of Evaluation Date of Evaluation: 07/26/17 Time of Evaluation: 08:40 - Subjective Subjective: Patient seen and examined with attending Dr. Camarena in Acute rehab unit this morning. Clinically stable. Afebrile Had no events overnight Objective - Vital Signs/Intake and Output Vital Signs (last 24 hours): Temp Pulse Resp BP Pulse Ox 97.7 F 70 20 138/90 98 07/26/17 19:54 07/26/17 19:54 07/26/17 19:54 07/26/17 19:54 07/26/17 19:54 - Medications Medications: Current Medications Aspirin (Aspirin Chewable) 81 mg PO DAILY [facility] Last Admin: 07/26/17 08:32 Dose: 81 mg Atorvastatin Calcium (Lipitor) 80 mg PO HS [facility] Last Admin: 07/25/17 21:53 Dose: 80 mg Carvedilol (Coreg) 3.125 mg PO DAILY [facility] Last Admin: 07/26/17 08:31 Dose: 3.125 mg Clopidogrel Bisulfate (Plavix) 75 mg PO DAILY [facility] Last Admin: 07/26/17 08:30 Dose: 75 mg Dextrose (Dextrose 50% Inj) 0 ml IV STAT PRN; Protocol PRN Reason: Hypoglycemia Protocol Dextrose (Glutose 15) 0 gm PO ONCE PRN; Protocol PRN Reason: Hypoglycemia Protocol Dimethicone (Proshield Plus Skin Protectant) 1 applic TOP Q8 [facility] Last Admin: 07/26/17 16:52 Dose: 1 applic Docusate Sodium (Colace) 100 mg PO DAILY [facility] Last Admin: 07/26/17 08:31 Dose: 100 mg Escitalopram Oxalate (Lexapro) 20 mg PO DAILY [facility] Last Admin: 07/26/17 08:30 Dose: 20 mg Furosemide (Lasix) 20 mg PO DAILY [facility] Last Admin: 07/26/17 08:30 Dose: 20 mg Glipizide (Glucotrol Xl) 5 mg PO BRK [facility] Last Admin: 07/26/17 08:31 Dose: 5 mg Glucagon (Glucagen Diagnostic Kit) 0 mg IM STAT PRN; Protocol PRN Reason: Hypoglycemia Protocol Hydrocortisone (Anusol-Hc) 1 applic [place] 0600,1800 [facility] Last Admin: 07/26/17 17:10 Dose: 1 applic Hydrocortisone (Cortizone 1% Cream) 1 applic TOP DAILY [facility] Last Admin: 07/26/17 08:29 Dose: 1 applic Insulin Human Lispro (Humalog) 0 units SC 0600,2100 [facility] PRN Reason: Protocol Last Admin: 07/26/17 06:16 Dose: Not Given Losartan Potassium (Cozaar) 100 mg PO DAILY [facility] Last Admin: 07/26/17 08:30 Dose: 100 mg Metformin HCl (Glucophage) 500 mg PO TIDWM [facility] Last Admin: 07/26/17 16:51 Dose: 500 mg Ondansetron HCl (Zofran Tab) 4 mg PO Q6 PRN PRN Reason: Nausea/Vomiting Last Admin: 07/24/17 09:04 Dose: 4 mg Pantoprazole Sodium (Protonix Ec Tab) 40 mg PO DAILY [facility] Last Admin: 07/26/17 08:31 Dose: 40 mg Sitagliptin Phosphate (Januvia) 100 mg PO DAILY [facility] Last Admin: 07/26/17 08:31 Dose: 100 mg Temazepam (Restoril) 15 mg PO HS PRN PRN Reason: Sedation - Labs Labs: 07/22/17 06:26 07/22/17 06:26 - Additional Findings Additional findings: Constitutional Appears: Non-toxic, No Acute Distress - Eye Exam Eye Exam: Normal appearance - ENT Exam ENT Exam: Mucous Membranes Moist - Respiratory Exam Respiratory Exam: Clear to Ausculation Bilateral, NORMAL BREATHING PATTERN. absent: Rales, Rhonchi, Wheezes, Stridor - Cardiovascular Exam Cardiovascular Exam: REGULAR RHYTHM, +S1, +S2 - GI/Abdominal Exam GI & Abdominal Exam: Soft, Normal Bowel Sounds. absent: Distended, Guarding, Rigid, Tenderness - Extremities Exam Extremities Exam: Normal Inspection. absent: Calf Tenderness, Pedal Edema - Neurological Exam Neurological Exam: Alert, Awake - Skin Skin Exam: Dry, Intact, Normal Color Assessment and Plan (1) Status post CVA Status: Acute (2) Hypertension Status: Chronic (3) Diabetes mellitus type 2 in nonobese Status: Chronic (4) DVT prophylaxis Status: Acute - Assessment and Plan (Free Text) Assessment: c/w current medical treatment, speech and physical therapy
[2017-07-27] MEDS: Hydrocortisone 2.5% (Rectal) CREAM PR SCH ×2 (05:04→17:11)
[2017-07-27] MEDS: Proshield Plus GEL TOP SCH ×3 (05:04→21:52)
[2017-07-27] MEDS: Insulin Lispro (humaLOG) 100 Units/ml Inj SC SCH ×2 (06:21→21:51)
[2017-07-27] MEDS: GlipiZIDE 5 mg SR Tab PO SCH (08:59)
[2017-07-27] MEDS: Pantoprazole 40 mg EC Tab PO SCH (09:00)
--- NOTE | 2017-07-27 09:13 | CP.PCM.PN ---
Subjective - Date & Time of Evaluation Date of Evaluation: 07/27/17 Time of Evaluation: 08:45 - Subjective Subjective: Patient seen and examined in Sub acute rehab this motning. Seen , alert, awake, and oriented having her breakfast Afebrile, BP has been elevated this morning. Denies Cp, SOB, palpitations, dizziness or other complains. BS levels improving had an uneventful night Objective - Vital Signs/Intake and Output Vital Signs (last 24 hours): Temp Pulse Resp BP Pulse Ox 97.5 F L 76 19 169/103 H 95 07/27/17 09:05 07/27/17 09:05 07/27/17 09:05 07/27/17 09:05 07/27/17 09:05 - Medications Medications: Current Medications Aspirin (Aspirin Chewable) 81 mg PO DAILY [facility] Last Admin: 07/27/17 08:59 Dose: 81 mg Atorvastatin Calcium (Lipitor) 80 mg PO HS [facility] Carvedilol (Coreg) 3.125 mg PO DAILY [facility] Last Admin: 07/27/17 08:59 Dose: 3.125 mg Clopidogrel Bisulfate (Plavix) 75 mg PO DAILY [facility] Last Admin: 07/27/17 09:00 Dose: 75 mg Dextrose (Dextrose 50% Inj) 0 ml IV STAT PRN; Protocol PRN Reason: Hypoglycemia Protocol Dextrose (Glutose 15) 0 gm PO ONCE PRN; Protocol PRN Reason: Hypoglycemia Protocol Dimethicone (Proshield Plus Skin Protectant) 1 applic TOP Q8 [facility] Last Admin: 07/27/17 05:04 Dose: 1 applic Docusate Sodium (Colace) 100 mg PO DAILY [facility] Last Admin: 07/27/17 08:59 Dose: 100 mg Escitalopram Oxalate (Lexapro) 20 mg PO DAILY [facility] Last Admin: 07/27/17 09:00 Dose: 20 mg Furosemide (Lasix) 20 mg PO DAILY [facility] Last Admin: 07/27/17 08:59 Dose: 20 mg Glipizide (Glucotrol Xl) 5 mg PO BRK [facility] Last Admin: 07/27/17 08:59 Dose: 5 mg Glucagon (Glucagen Diagnostic Kit) 0 mg IM STAT PRN; Protocol PRN Reason: Hypoglycemia Protocol Hydrocortisone (Anusol-Hc) 1 applic [place] 0600,1800 [facility] Last Admin: 07/27/17 05:04 Dose: 1 applic Hydrocortisone (Cortizone 1% Cream) 1 applic TOP DAILY [facility] Last Admin: 07/27/17 09:00 Dose: 1 applic Insulin Human Lispro (Humalog) 0 units SC 0600,2100 [facility] PRN Reason: Protocol Last Admin: 07/27/17 06:21 Dose: Not Given Losartan Potassium (Cozaar) 100 mg PO DAILY [facility] Last Admin: 07/27/17 09:00 Dose: 100 mg Metformin HCl (Glucophage) 500 mg PO TIDWM [facility] Last Admin: 07/27/17 08:59 Dose: 500 mg Ondansetron HCl (Zofran Tab) 4 mg PO Q6 PRN PRN Reason: Nausea/Vomiting Last Admin: 07/24/17 09:04 Dose: 4 mg Pantoprazole Sodium (Protonix Ec Tab) 40 mg PO DAILY [facility] Last Admin: 07/27/17 09:00 Dose: 40 mg Sitagliptin Phosphate (Januvia) 100 mg PO DAILY [facility] Last Admin: 07/27/17 08:58 Dose: 100 mg Temazepam (Restoril) 15 mg PO HS PRN PRN Reason: Sedation - Labs Labs: 07/22/17 06:26 07/22/17 06:26 - Additional Findings Additional findings: Additional Findings Additional findings: Constitutional Appears: Non-toxic, No Acute Distress - Eye Exam Eye Exam: Normal appearance - ENT Exam ENT Exam: Mucous Membranes Moist - Respiratory Exam Respiratory Exam: Clear to Ausculation Bilateral, NORMAL BREATHING PATTERN. absent: Rales, Rhonchi, Wheezes, Stridor - Cardiovascular Exam Cardiovascular Exam: REGULAR RHYTHM, +S1, +S2 - GI/Abdominal Exam GI & Abdominal Exam: Soft, Normal Bowel Sounds. absent: Distended, Guarding, Rigid, Tenderness - Extremities Exam Extremities Exam: Normal Inspection. absent: Calf Tenderness, Pedal Edema - Neurological Exam Neurological Exam: Alert, Awake - Skin Skin Exam: Dry, Intact, Normal Color Assessment and Plan (1) Status post CVA Assessment & Plan: c/w Physical therapy Status: Acute (2) Hypertension Assessment & Plan: Has been elevated will increase Coreg to 6.25 mg PO Q12 Hydralazine 25 mg PO Q12 PRN if SBP >160 f/u BP Status: Chronic (3) Diabetes mellitus type 2 in nonobese Status: Chronic
[2017-07-28] MEDS: Insulin Lispro (humaLOG) 100 Units/ml Inj SC SCH ×2 (05:57→21:51)
[2017-07-28] MEDS: Proshield Plus GEL TOP SCH ×3 (06:11→21:51)
[2017-07-28] MEDS: Hydrocortisone 2.5% (Rectal) CREAM PR SCH ×2 (06:12→17:26)
--- NOTE | 2017-07-28 08:46 | PN ---
DATE: 07/28/2017 SUBJECTIVE: The patient is seen and examined. Interim events noted. Consults noted and appreciated. The patient remains in the Acute Rehab Unit. The patient feels okay. No specific complaint. No chest pain or shortness of breath. PHYSICAL EXAMINATION: GENERAL: The patient is in no acute distress. VITAL SIGNS: Stable. HEART: S1 and S2, normal and regular. LUNGS: Good bilateral air exchange. ABDOMEN: Soft, nontender. EXTREMITIES: No edema. No calf swelling. No tenderness. No acute ischemia. CENTRAL NERVOUS SYSTEM: Essentially unchanged. The patient is able to speech and also able to eat. ASSESSMENT AND PLAN: Overall, the patient is clinically stable and improving. Plan as ordered. Case and plan discussed with the patient. Robert Rios MD
[2017-07-28] MEDS: GlipiZIDE 5 mg SR Tab PO SCH (08:50)
[2017-07-28] MEDS: Pantoprazole 40 mg EC Tab PO SCH (08:51)
--- NOTE | 2017-07-28 08:51 | CP.PCM.CON ---
History of Present Illness - History of Present Illness History of Present Illness: Pt is a 72 year old female admitted to [facility] and referred to the insurance underwriter sales for evaluation. Med history positive for CVA, DM, HTN. See medical record for complete medical history and medications. Social History: pt lives alone, was . She has 4 children, 2 in the [facility], one in [place] and 1 in the [facility]. Pt unable to describe relationships with family members. She spoke of having friends and great lenin. Time spent praying when at home. Ed/ Voc: pt raised in the [facility], BS degree in Business. Pt reported being in the [place] 25[place] years. Psych history denied, pt denied a history of alc/sub abuse. MSE: pt alert, oriented x2, relevant/coherent, no psychosis, affect constrited, mood dysphoric and thinking slow, initiation slow. Pt denied depression despite constricted affect, Cognitive strategies introduced to reduce distress/ depression. Dx: Adjustment Dx/Depression Plan: Continued Sup therapy Continued Psychiatric monitoring Past Patient History - Infectious Disease Hx of Infectious Diseases: None - Past Medical History & Family History Past Medical History?: Yes - Past Social History Smoking Status: Never Smoked Alcohol: None Drugs: Denies Home Situation {Lives}: Alone (4 steps) - CARDIAC Hx Hypertension: Yes - PULMONARY Hx Chronic Obstructive Pulmonary Disease (COPD): No - NEUROLOGICAL HX Cerebrovascular Accident: Yes Hx Syncope: Yes - HEENT Hx HEENT Problems: Yes Other/Comment: R eye lasik sx, wears glasses - RENAL Hx Chronic Kidney Disease: No Hx Renal Failure: No - ENDOCRINE/METABOLIC Hx Diabetes Mellitus Type 2: Yes - HEMATOLOGICAL/ONCOLOGICAL Hx Blood Disorders: No Hx AIDS: No Hx Human Immunodeficiency Virus (HIV): No - INTEGUMENTARY Hx Dermatological Problems: No - MUSCULOSKELETAL/RHEUMATOLOGICAL Hx Musculoskeletal Disorders: Yes Hx Arthritis: Yes Hx Falls: No Hx Unsteady Gait: Yes - GASTROINTESTINAL Hx Gastrointestinal Disorders: Yes Hx Constipation: Yes Hx Hemorrhoids: Yes - GENITOURINARY/GYNECOLOGICAL Hx Genitourinary Disorders: No Hx Incontinence: Yes (Post CVA) - PSYCHIATRIC Hx Psychophysiologic Disorder: No Hx Substance Use: No - SURGICAL HISTORY Hx Surgeries: Yes Hx Appendectomy: Yes Hx Cardiac Catheterization: Yes Hx Section: Yes Hx Coronary Stent: Yes Hx Eye Surgery: Yes (R eye lasik sx) - ANESTHESIA Hx Anesthesia: Yes Hx Anesthesia Reactions: No Hx Malignant Hyperthermia: No Has any member of the family had a problem w/ anesthesia?: No Meds Allergies/Adverse Reactions: Allergies Allergy/AdvReac Type Severity Reaction Status Date / Time No Known Allergies Allergy Verified 07/14/17 12:31 - Medications Medications: Current Medications Aspirin (Aspirin Chewable) 81 mg PO DAILY [facility] Last Admin: 07/27/17 08:59 Dose: 81 mg Atorvastatin Calcium (Lipitor) 80 mg PO HS [facility] Last Admin: 07/27/17 21:51 Dose: 80 mg Carvedilol (Coreg) 6.25 mg PO Q12 [facility] Last Admin: 07/27/17 21:48 Dose: 6.25 mg Clopidogrel Bisulfate (Plavix) 75 mg PO DAILY [facility] Last Admin: 07/27/17 09:00 Dose: 75 mg Dextrose (Dextrose 50% Inj) 0 ml IV STAT PRN; Protocol PRN Reason: Hypoglycemia Protocol Dextrose (Glutose 15) 0 gm PO ONCE PRN; Protocol PRN Reason: Hypoglycemia Protocol Dimethicone (Proshield Plus Skin Protectant) 1 applic TOP Q8 [facility] Last Admin: 07/28/17 06:11 Dose: 1 applic Docusate Sodium (Colace) 100 mg PO DAILY [facility] Last Admin: 07/27/17 08:59 Dose: 100 mg Escitalopram Oxalate (Lexapro) 20 mg PO DAILY [facility] Last Admin: 07/27/17 09:00 Dose: 20 mg Furosemide (Lasix) 20 mg PO DAILY [facility] Last Admin: 07/27/17 08:59 Dose: 20 mg Glipizide (Glucotrol Xl) 5 mg PO BRK [facility] Last Admin: 07/27/17 08:59 Dose: 5 mg Glucagon (Glucagen Diagnostic Kit) 0 mg IM STAT PRN; Protocol PRN Reason: Hypoglycemia Protocol Hydralazine HCl (Apresoline) 25 mg PO Q12 PRN PRN Reason: Systolic Blood Pressure Last Admin: 07/27/17 11:20 Dose: 25 mg Hydrocortisone (Anusol-Hc) 1 applic [place] 0600,1800 [facility] Last Admin: 07/28/17 06:12 Dose: 1 applic Hydrocortisone (Cortizone 1% Cream) 1 applic TOP DAILY [facility] Last Admin: 07/27/17 09:00 Dose: 1 applic Insulin Human Lispro (Humalog) 0 units SC 0600,2100 [facility] PRN Reason: Protocol Last Admin: 07/28/17 05:57 Dose: Not Given Losartan Potassium (Cozaar) 100 mg PO DAILY [facility] Last Admin: 07/27/17 09:00 Dose: 100 mg Metformin HCl (Glucophage) 500 mg PO BIDWM [facility] Ondansetron HCl (Zofran Tab) 4 mg PO Q6 PRN PRN Reason: Nausea/Vomiting Last Admin: 07/24/17 09:04 Dose: 4 mg Pantoprazole Sodium (Protonix Ec Tab) 40 mg PO DAILY [facility] Last Admin: 07/27/17 09:00 Dose: 40 mg Sitagliptin Phosphate (Januvia) 100 mg PO DAILY [facility] Last Admin: 07/27/17 08:58 Dose: 100 mg Temazepam (Restoril) 15 mg PO HS PRN PRN Reason: Sedation Results - Vital Signs Recent Vital Signs: Last Vital Signs Temp 97.7 F 07/28/17 08:22 Pulse 62 07/28/17 08:22 Resp 20 07/28/17 08:22 BP 152/71 H 07/28/17 08:22 Pulse Ox 98 07/28/17 08:22 - Labs Result Diagrams: 07/22/17 06:26 07/22/17 06:26 Labs: Laboratory Results - last 24 hr 07/27/17 07/28/17 21:39 05:57 POC Glucose (mg/dL) 118 H 101
[2017-07-29] MEDS: Proshield Plus GEL TOP SCH ×3 (06:11→21:13)
[2017-07-29] MEDS: Hydrocortisone 2.5% (Rectal) CREAM PR SCH ×2 (06:11→18:48)
[2017-07-29] MEDS: Insulin Lispro (humaLOG) 100 Units/ml Inj SC SCH ×3 (06:12→21:14)
--- NOTE | 2017-07-29 08:52 | PN ---
DATE: 07/29/2017 SUBJECTIVE: The patient is seen and examined. Interim events noted. The patient remains in Acute Rehab Unit. The patient is sleepy, arousable. Denies any specific new complaint. No specific issue reported by nursing staff. PHYSICAL EXAMINATION: GENERAL: The patient is in no acute distress. VITAL SIGNS: Stable. Physical exam is essentially unchanged. DIAGNOSTIC DATA: Available diagnostic data reviewed. ASSESSMENT AND PLAN: Overall, the patient's general medical condition is stable. Plan as ordered. Robert Rios MD
[2017-07-29] MEDS: GlipiZIDE 5 mg SR Tab PO SCH (08:56)
[2017-07-29] MEDS: Pantoprazole 40 mg EC Tab PO SCH (08:58)
[2017-07-30] MEDS: Proshield Plus GEL TOP SCH ×3 (06:38→21:16)
[2017-07-30] MEDS: Hydrocortisone 2.5% (Rectal) CREAM PR SCH ×2 (06:39→18:15)
[2017-07-30] MEDS: Insulin Lispro (humaLOG) 100 Units/ml Inj SC SCH ×2 (06:45→21:13)
[2017-07-30] MEDS: GlipiZIDE 5 mg SR Tab PO SCH (08:00)
--- NOTE | 2017-07-30 08:35 | PN ---
DATE: 07/30/2017 SUBJECTIVE: The patient is seen and examined. Interim events noted. The patient remains in Acute Rehab Unit. The patient feels okay. No specific complaint. No specific issue reported by nursing staff. PHYSICAL EXAMINATION: GENERAL: The patient is in no acute distress. VITAL SIGNS: Stable. HEART: S1 and S2, normal and regular. LUNGS: Good bilateral air exchange. ABDOMEN: Soft, nontender. EXTREMITIES: No edema. No calf swelling. No tenderness. No acute ischemia. CENTRAL NERVOUS SYSTEM: Essentially unchanged. DIAGNOSTIC DATA: Available diagnostic data reviewed. Accu-Check is 110. ASSESSMENT AND PLAN: Overall, the patient's general medical condition is stable. Plan as ordered. Robert Rios MD
[2017-07-30] MEDS: Pantoprazole 40 mg EC Tab PO SCH (09:20)
--- NOTE | 2017-07-30 12:03 | CP.PCM.PN ---
Subjective - Date & Time of Evaluation Date of Evaluation: 07/30/17 Time of Evaluation: 10:00 - Subjective Subjective: no acute complaints of pain Objective - Vital Signs/Intake and Output Vital Signs (last 24 hours): Temp Pulse Resp BP Pulse Ox 97.9 F 80 19 130/80 97 07/30/17 09:05 07/30/17 09:21 07/30/17 09:05 07/30/17 09:21 07/30/17 09:05 - Medications Medications: Current Medications Aspirin (Aspirin Chewable) 81 mg PO DAILY [facility] Last Admin: 07/30/17 09:19 Dose: 81 mg Atorvastatin Calcium (Lipitor) 80 mg PO HS [facility] Last Admin: 07/29/17 21:13 Dose: 80 mg Carvedilol (Coreg) 6.25 mg PO Q12 [facility] Last Admin: 07/30/17 09:20 Dose: 6.25 mg Clopidogrel Bisulfate (Plavix) 75 mg PO DAILY [facility] Last Admin: 07/30/17 09:19 Dose: 75 mg Dextrose (Dextrose 50% Inj) 0 ml IV STAT PRN; Protocol PRN Reason: Hypoglycemia Protocol Dextrose (Glutose 15) 0 gm PO ONCE PRN; Protocol PRN Reason: Hypoglycemia Protocol Dimethicone (Proshield Plus Skin Protectant) 1 applic TOP Q8 [facility] Last Admin: 07/30/17 06:38 Dose: 1 applic Docusate Sodium (Colace) 100 mg PO DAILY [facility] Last Admin: 07/30/17 09:19 Dose: 100 mg Escitalopram Oxalate (Lexapro) 20 mg PO DAILY [facility] Last Admin: 07/30/17 09:18 Dose: 20 mg Furosemide (Lasix) 20 mg PO DAILY [facility] Last Admin: 07/30/17 09:19 Dose: 20 mg Glipizide (Glucotrol Xl) 5 mg PO BRK [facility] Last Admin: 07/30/17 08:00 Dose: 5 mg Glucagon (Glucagen Diagnostic Kit) 0 mg IM STAT PRN; Protocol PRN Reason: Hypoglycemia Protocol Hydralazine HCl (Apresoline) 25 mg PO Q12 PRN PRN Reason: Systolic Blood Pressure Last Admin: 07/27/17 11:20 Dose: 25 mg Hydrocortisone (Anusol-Hc) 1 applic [place] 0600,1800 [facility] Last Admin: 07/30/17 06:39 Dose: 1 applic Hydrocortisone (Cortizone 1% Cream) 1 applic TOP DAILY [facility] Last Admin: 07/30/17 09:21 Dose: 1 applic Insulin Human Lispro (Humalog) 0 units SC 0600,2100 [facility] PRN Reason: Protocol Last Admin: 07/30/17 06:45 Dose: Not Given Losartan Potassium (Cozaar) 100 mg PO DAILY [facility] Last Admin: 07/30/17 09:21 Dose: 100 mg Metformin HCl (Glucophage) 500 mg PO BIDWM [facility] Last Admin: 07/30/17 09:20 Dose: 500 mg Ondansetron HCl (Zofran Tab) 4 mg PO Q6 PRN PRN Reason: Nausea/Vomiting Last Admin: 07/24/17 09:04 Dose: 4 mg Pantoprazole Sodium (Protonix Ec Tab) 40 mg PO DAILY [facility] Last Admin: 07/30/17 09:20 Dose: 40 mg Sitagliptin Phosphate (Januvia) 100 mg PO DAILY [facility] Last Admin: 07/30/17 09:19 Dose: 100 mg Temazepam (Restoril) 15 mg PO HS PRN PRN Reason: Sedation - Labs Labs: 07/22/17 06:26 07/22/17 06:26 - Head Exam Head Exam: ATRAUMATIC, NORMAL INSPECTION, NORMOCEPHALIC - Eye Exam Eye Exam: EOMI, Normal appearance, PERRL Pupil Exam: NORMAL ACCOMODATION - ENT Exam ENT Exam: Mucous Membranes Moist, Normal Exam - Neck Exam Neck Exam: Normal Inspection - Respiratory Exam Respiratory Exam: NORMAL BREATHING PATTERN - Cardiovascular Exam Cardiovascular Exam: REGULAR RHYTHM - GI/Abdominal Exam GI & Abdominal Exam: Soft, Normal Bowel Sounds - Rectal Exam Rectal Exam: NORMAL INSPECTION - Exam External exam: NORMAL EXTERNAL EXAM - Extremities Exam Extremities Exam: Full ROM, Normal Capillary Refill - Back Exam Back Exam: NORMAL INSPECTION - Neurological Exam Neurological Exam: Alert, Awake Neuro motor strength exam: Left Upper Extremity: 3, Right Upper Extremity: 3, Left Lower Extremity: 3, Right Lower Extremity: 3 - Psychiatric Exam Psychiatric exam: Normal Affect, Normal Mood - Skin Skin Exam: Dry, Intact Assessment and Plan (1) DVT prophylaxis Status: Acute (2) Diabetes mellitus Status: Acute (3) Gait abnormality Status: Acute (4) Gastritis Status: Acute (5) Status post CVA Assessment & Plan: plan for physical, occupational, rec therapy covering for Dr Goodson Status: Acute (6) Diabetes mellitus type 2 in nonobese Status: Chronic (7) Hypertension Status: Chronic (8) Acute embolic stroke Status: Acute
[2017-07-30 13:26] LABS: HEMATOCRIT 37.1 % (34.0-47.0); MEAN CELL VOLUME 89.9 fl (81.0-99.0); MEAN CORPUSCULAR HEMOGLOBIN 30.1 pg (27.0-31.0); MEAN CORPUSCULAR HGB CONC 33.4 g/dL (33.0-37.0); RED CELL DISTRIBUTION WIDTH 12.9 % (11.5-14.5)
[2017-07-30 13:41] LABS: ALKALINE PHOSPHATASE 68 U/L (38-126); ALT/SGPT 36 U/L (9-52); AST/SGOT 56 U/L (14-36); BILIRUBIN,TOTAL 0.9 mg/dl (0.2-1.3); BLOOD UREA NITROGEN 34 mg/dl (7-17); CALCIUM 9.3 mg/dL (8.4-10.2); CARBON DIOXIDE 26 mmol/L (22-30); CHLORIDE 96 mmol/L (98-107); CHOLESTEROL 117 mg/dL (0-199); GFR AFRICAN-AMERICAN > 60; GLUCOSE,RANDOM 205 mg/dL (65-105); POTASSIUM 4.6 MMOL/L (3.6-5.0); SODIUM 136 mmol/l (132-148); TOTAL PROTEIN 8.3 G/DL (6.3-8.2)
[2017-07-30 13:43] LABS: ALB/GLOB RATIO 1.1 (1.0-2.1)
[2017-07-31] MEDS: Insulin Lispro (humaLOG) 100 Units/ml Inj SC SCH ×2 (05:55→21:23)
[2017-07-31] MEDS: Hydrocortisone 2.5% (Rectal) CREAM PR SCH ×2 (06:23→17:16)
[2017-07-31] MEDS: Proshield Plus GEL TOP SCH ×3 (06:23→21:32)
[2017-07-31] MEDS: GlipiZIDE 5 mg SR Tab PO SCH (08:24)
[2017-07-31] MEDS: Pantoprazole 40 mg EC Tab PO SCH (08:25)
--- NOTE | 2017-07-31 12:28 | PN ---
DATE: 07/31/2017 SUBJECTIVE: The patient seen and examined. Interim events noted. The patient remains in Acute Rehab Unit. Feels okay. Denies any chest pain, shortness of breath, any new weakness. PHYSICAL EXAMINATION GENERAL: The patient is in no acute distress. VITAL SIGNS: Stable. HEART: S1, S2 normal and regular. LUNGS: Good bilateral air exchange. ABDOMEN: Soft, nontender. EXTREMITIES: No edema, no calf swelling, no tenderness, no acute ischemia. CENTRAL NERVOUS SYSTEM: Exam is essentially unchanged. DIAGNOSTIC DATA: Available diagnostic data reviewed. Overall, the patient's general medical condition is stable, Acute Rehab. Plan as ordered. Case and plan discussed with the patient and the patient's son at bedside at length. Robert Rios MD
[2017-08-01] MEDS: Hydrocortisone 2.5% (Rectal) CREAM PR SCH ×2 (06:47→17:10)
[2017-08-01] MEDS: Proshield Plus GEL TOP SCH ×3 (06:48→21:19)
[2017-08-01] MEDS: Insulin Lispro (humaLOG) 100 Units/ml Inj SC SCH ×2 (06:56→21:20)
[2017-08-01] MEDS: GlipiZIDE 5 mg SR Tab PO SCH (09:00)
--- NOTE | 2017-08-01 09:08 | CP.PCM.PN ---
Subjective - Date & Time of Evaluation Date of Evaluation: 08/01/17 Time of Evaluation: 07:50 - Subjective Subjective: Patient seen and examined with attending Dr Gabriel reece. Pt reports already had PT today and states she is improving. Denies chest pain, SOB, n,v,abd pain. no overnight events Objective - Vital Signs/Intake and Output Vital Signs (last 24 hours): Temp Pulse Resp BP Pulse Ox 97.8 F 67 20 155/77 H 99 08/01/17 08:46 08/01/17 08:46 08/01/17 08:46 08/01/17 08:46 08/01/17 08:46 - Medications Medications: Current Medications Aspirin (Aspirin Chewable) 81 mg PO DAILY [facility] Last Admin: 07/31/17 08:24 Dose: 81 mg Atorvastatin Calcium (Lipitor) 80 mg PO HS [facility] Last Admin: 07/31/17 21:33 Dose: 80 mg Carvedilol (Coreg) 6.25 mg PO Q12 [facility] Last Admin: 07/31/17 20:20 Dose: 6.25 mg Clopidogrel Bisulfate (Plavix) 75 mg PO DAILY [facility] Last Admin: 07/31/17 08:25 Dose: 75 mg Dextrose (Dextrose 50% Inj) 0 ml IV STAT PRN; Protocol PRN Reason: Hypoglycemia Protocol Dextrose (Glutose 15) 0 gm PO ONCE PRN; Protocol PRN Reason: Hypoglycemia Protocol Dimethicone (Proshield Plus Skin Protectant) 1 applic TOP Q8 [facility] Last Admin: 08/01/17 06:48 Dose: 1 applic Docusate Sodium (Colace) 100 mg PO DAILY [facility] Last Admin: 07/31/17 08:24 Dose: 100 mg Escitalopram Oxalate (Lexapro) 20 mg PO DAILY [facility] Last Admin: 07/31/17 08:25 Dose: 20 mg Furosemide (Lasix) 20 mg PO DAILY [facility] Last Admin: 07/31/17 08:24 Dose: 20 mg Glipizide (Glucotrol Xl) 5 mg PO BRK [facility] Last Admin: 07/31/17 08:24 Dose: 5 mg Glucagon (Glucagen Diagnostic Kit) 0 mg IM STAT PRN; Protocol PRN Reason: Hypoglycemia Protocol Hydralazine HCl (Apresoline) 25 mg PO Q12 PRN PRN Reason: Systolic Blood Pressure Last Admin: 07/27/17 11:20 Dose: 25 mg Hydrocortisone (Anusol-Hc) [address] 0600,1800 [facility] Last Admin: 08/01/17 06:47 Dose: 1 applic Hydrocortisone (Cortizone 1% Cream) 1 applic TOP DAILY [facility] Last Admin: 07/31/17 08:22 Dose: 1 applic Insulin Human Lispro (Humalog) 0 units SC 0600,2100 [facility] PRN Reason: Protocol Last Admin: 08/01/17 06:56 Dose: Not Given Losartan Potassium (Cozaar) 100 mg PO DAILY [facility] Last Admin: 07/31/17 08:23 Dose: 100 mg Metformin HCl (Glucophage) 500 mg PO BIDWM [facility] Last Admin: 07/31/17 17:11 Dose: 500 mg Ondansetron HCl (Zofran Tab) 4 mg PO Q6 PRN PRN Reason: Nausea/Vomiting Last Admin: 07/24/17 09:04 Dose: 4 mg Pantoprazole Sodium (Protonix Ec Tab) 40 mg PO DAILY [facility] Last Admin: 07/31/17 08:25 Dose: 40 mg Sitagliptin Phosphate (Januvia) 100 mg PO DAILY [facility] Last Admin: 07/31/17 08:23 Dose: 100 mg Temazepam (Restoril) 15 mg PO HS PRN PRN Reason: Sedation - Labs Labs: 07/30/17 13:19 07/30/17 13:19 - Constitutional Appears: Non-toxic, No Acute Distress - Head Exam Head Exam: ATRAUMATIC, NORMOCEPHALIC - Eye Exam Eye Exam: Normal appearance - Respiratory Exam Respiratory Exam: Clear to Ausculation Bilateral. absent: Rales, Rhonchi, Wheezes - Cardiovascular Exam Cardiovascular Exam: REGULAR RHYTHM, +S1, +S2 - GI/Abdominal Exam GI & Abdominal Exam: Soft, Normal Bowel Sounds. absent: Tenderness, Rebound - Extremities Exam Extremities Exam: Normal Inspection. absent: Pedal Edema Additional comments: mild right hemiparesis noted. - Neurological Exam Neurological Exam: Alert, Awake, Oriented x3 - Psychiatric Exam Psychiatric exam: Normal Affect - Skin Skin Exam: Dry, Intact Assessment and Plan (1) Status post CVA Assessment & Plan: -residual right hemiparesis -c/w PT, OT Status: Acute (2) Hypertension Assessment & Plan: controlled Status: Chronic (3) Diabetes mellitus Assessment & Plan: c/w glipizide and januvia Status: Acute
[2017-08-01] MEDS: Pantoprazole 40 mg EC Tab PO SCH (09:17)
--- NOTE | 2017-08-01 13:19 | PSY.TMCNF ---
Nursing - Vital Signs Vital Signs (Last 8 hours): Vital Signs 08/01/17 08/01/17 08/01/17 08:46 09:00 09:18 Temperature 97.8 F 97.8 F Pulse Rate 67 67 Respiratory 20 20 Rate Blood Pressure 155/77 H 155/77 H 155/77 H O2 Sat by Pulse 99 Oximetry 08/01/17 09:19 Temperature Pulse Rate Respiratory Rate Blood Pressure 155/77 H O2 Sat by Pulse Oximetry Pain: 0 - Precautions: Precautions: Fall Prevention, Aspiration, Pressure Ulcer - Medications/Other Issues Comment: Pt at high nutritional risk. goals: 1. Pt to consume 75-100% of meals (not met, continue). 2. Blood glucoses to be between 70-180 mg/dl(partially met, continue). New goal. 3. Deter wt loss. Follow-up due on 08/05/2017 - Consults Comment: Dr. Sierra, Dr. Goodson - Wound Sacrum Wound Type: Moisture Associated Skin Damage Wound Stage: STAGE II Wound Shape: Irregular Wound Edges: Closed Wound Bed Greatest Portion: Pale [place] Wound Bed Lesser Portion: Pale [place] Wound Drainage Odor: None/Absent Wound General Appearance: Clean/Dry Wound Dressing Status: Dry & Intact Dressing Changed: Yes Wound Primary Dressing Type: Gauze Pads Comment: cleans with ns and skin prep - Toileting Toileting: Dependent - Bladder Management Bladder Pattern: Normal Voiding Method: Diaper Bladder Management: Dependent Frequency of Accidents: >5 - Bowel Management Bowel Pattern: Incontinent Bowel Management: Dependent Frequency of Accidents: >5 - Transfers Transfers: Dependent - ADL's ADL's: Dependent - Pain Management Comments: denies any pain - Patient/Family Teaching Comments: Care post CVA and Safety Precautions - Goals/Time Frame Comments: Per multidisciplinary care plans and goals - Provider Provider: Mahsa MCCALLUMN RN CRRN Physical Therapy - Bed Mobility Bed Mobility: Maximum Assistance, Dependent - Transfers Wheelchair to Mat: Dependent Sit to Stand: Maximum Assistance - Ambulation Level of Assistance: Maximum Assistance Distance (ft.): 10 Comment: -emphasis of recent treatments has been on improved trunk control in standing and seated positions. -patient was able to ambulate last week with max A for trunk control and total A for RLE management at the wall bar approx. 10-12 feet - Stair Negotiation Stairs: Level of Assistance: Not Tested - Standing Balance Static Stand: Maximal Assistance Dynamic Stand: Maximal Assistance, Dependent - Pain Comment: buttocks - Insight/Carryover Insight/Carryover: Fair - Patient/Family Education Comment: stroke recovery, safety, compensatory strategies ADLs and ADL transfers - Assessment/Plan Assessment: Pt continues to present with flat affect however with encouragement pt will participate in therapy treatment. Pt with significant impairements with dynamic sitting balance and trunk controlling limiting pt's independence with self care tasks. Recommend tx to address static/dynamic sitting balance, endurance, RUE ROM/strength/coordination and motor planning/cognitive deficits - Goals Timeframe: 1 week Goals: MOD A UE dressing. MAX A LE Dressing. static sitting balance S at edge of bed. dynamic sitting balance MIN A at edge of bed. S with feeding. S with grooming. MAX A x1 ADLs transfers - Provider Therapist: Jess Engle PT, DPT License Number: [id number] Occupational Therapy - Arousal/Attention/Orientation Level of Consciousness: Awake, Alert Patient Orientation: Person, Place, Time - ADL/IADL Self Feeding: Verbal Cues, Set-up Help, Maximum Assistance Grooming: Maximum Assistance Dressing-Upper Extremity: Dependent Dressing-Lower Extremity: Dependent - Sitting Balance Static Sitting: Minimal Assistance Dynamic Sitting: Moderate Assistance, Maximal Assistance - Transfers Wheelchair to Bed Transfers: Dependent Toilet Transfers: Dependent - Wheelchair Management Level of Assistance: Dependent - Upper Extremity Status Right Upper Extremity Comment: PROM WFL Left Upper Extremity Comment: AROM WFL - Pain Comment: buttocks - Insight/Carryover Insight/Carryover: Fair - Patient/Family Education Comment: stroke recovery, safety, compensatory strategies ADLs and ADL transfers - Assessment/Plan Assessment: Pt continues to present with flat affect however with encouragement pt will participate in therapy treatment. Pt with significant impairements with dynamic sitting balance and trunk controlling limiting pt's independence with self care tasks. Recommend tx to address static/dynamic sitting balance, endurance, RUE ROM/strength/coordination and motor planning/cognitive deficits - Goals Timeframe: 1 week Goals: MOD A UE dressing. MAX A LE Dressing. static sitting balance S at edge of bed. dynamic sitting balance MIN A at edge of bed. S with feeding. S with grooming. MAX A x1 ADLs transfers - Provider Therapist: Nina Infante License Number: [id number] Speech Therapy - Consult Information Patient on Program: Yes Medical Diagnosis: CVA Treatment Diagnosis: mild-moderate cognitive deficits - Assessment Expressive Language Impairment: Mild Problem Solving Impairment: Moderate Memory Impairment: Moderate - Plan Assessment: Pt continues to present with flat affect however with encouragement pt will participate in therapy treatment. Pt with significant impairements with dynamic sitting balance and trunk controlling limiting pt's independence with self care tasks. Recommend tx to address static/dynamic sitting balance, endurance, RUE ROM/strength/coordination and motor planning/cognitive deficits - Provider Therapist: Bonita Berry License Number: [id number] Recreational Therapy - Participation Participation: Participates in Individual and/or Group Sessions - Attendance Attendance: 3-5 times per week - Activities Leisure Activities: Cards and Games - Socialization Level of Socialization: Requires 1:1 guidance to respond, Minimal initiation of interaction to request basic needs - Assessment Assessment/Plan: Pt continues to present with flat affect however with encouragement pt will participate in therapy treatment. Pt with significant impairements with dynamic sitting balance and trunk controlling limiting pt's independence with self care tasks. Recommend tx to address static/dynamic sitting balance, endurance, RUE ROM/strength/coordination and motor planning/ cognitive deficits - Provider Therapist: She Jimenez, WASH BOX OPERATOR #[id number] Nutrition - Current Diet Current Diet/ Supplement/ Feedings: Moderate consistent CHO heart healthy glucerna shake 8 ounces 2 per day - Appetite Percent Meal Consumed: 50-74% - Comments Comments: Care post CVA and Safety Precautions - Assessment/Goals/Time Frame Assessment/Goals/Time Frame: Pt at high nutritional risk. goals: 1. Pt to consume 75-100% of meals(not met, continue). 2. Blood glucoses to be between 70-180 mg/dl(partially met, continue). New goal. 3. Deter wt loss. Follow- up due on 08/05/2017 - Provider Provider: Sera Queen RD Case Management - Psychosocial Assessment Support Systems: Jeremias Escoto (son)- [phone]. Anna Urban (daughter)- [phone], Psychological Interventions/Needs: Patient alert, however with flat affect, does not respond to questions. Discharge Concerns: Patient requiring max- total A for bed mobility, transfers, ambulation Patient/Family Meeting: CM met with patient and rehab team Intervention/Goal/Outcome:: 1. Plan: MIESHA as patient making slow progress in therapy and limited support at home. 2. CM left messages for family- CM to f/u again. 3. Tentative discharge date:08/10. 4. continued stay auth, LAD: 07/31. 5. continued emotional support, psych consult for flat affect/mood? - Discharge Plan Discharge Plan: Subacute care - Provider Provider: HELIO Casas, COLD WORKING SUPERVISOR License Number: [id number] Rehabilitation Plan - Treatment Plan Treatment Plan: Physical Therapy, Occupational Therapy, Speech, Dietary, Patient /Family Education - Discharge Plan Estimated Date of Discharge: 08/10/17 Discharge to: Subacute Comment: May not be approved through our requested time
--- NOTE | 2017-08-01 13:35 | CP.PCM.PN ---
Subjective - Date & Time of Evaluation Date of Evaluation: 08/01/17 Time of Evaluation: 13:34 - Subjective Subjective: Patient seen in room NAD says she is working as hard as she can but very limited function in both PT/OT She denies any pain affecting her function Objective - Vital Signs/Intake and Output Vital Signs (last 24 hours): Temp Pulse Resp BP Pulse Ox 97.8 F 67 20 155/77 H 99 08/01/17 09:00 08/01/17 09:00 08/01/17 09:00 08/01/17 09:19 08/01/17 08:46 - Medications Medications: Current Medications Aspirin (Aspirin Chewable) 81 mg PO DAILY [facility] Last Admin: 08/01/17 09:17 Dose: 81 mg Atorvastatin Calcium (Lipitor) 80 mg PO HS [facility] Last Admin: 07/31/17 21:33 Dose: 80 mg Carvedilol (Coreg) 6.25 mg PO Q12 [facility] Last Admin: 08/01/17 09:19 Dose: 6.25 mg Clopidogrel Bisulfate (Plavix) 75 mg PO DAILY [facility] Last Admin: 08/01/17 09:20 Dose: 75 mg Dextrose (Dextrose 50% Inj) 0 ml IV STAT PRN; Protocol PRN Reason: Hypoglycemia Protocol Dextrose (Glutose 15) 0 gm PO ONCE PRN; Protocol PRN Reason: Hypoglycemia Protocol Dimethicone (Proshield Plus Skin Protectant) 1 applic TOP Q8 [facility] Last Admin: 08/01/17 06:48 Dose: 1 applic Docusate Sodium (Colace) 100 mg PO DAILY [facility] Last Admin: 08/01/17 09:17 Dose: 100 mg Escitalopram Oxalate (Lexapro) 20 mg PO DAILY [facility] Last Admin: 08/01/17 09:18 Dose: 20 mg Furosemide (Lasix) 20 mg PO DAILY [facility] Last Admin: 08/01/17 09:18 Dose: 20 mg Glipizide (Glucotrol Xl) 5 mg PO BRK [facility] Last Admin: 08/01/17 09:00 Dose: 5 mg Glucagon (Glucagen Diagnostic Kit) 0 mg IM STAT PRN; Protocol PRN Reason: Hypoglycemia Protocol Hydralazine HCl (Apresoline) 25 mg PO Q12 PRN PRN Reason: Systolic Blood Pressure Last Admin: 07/27/17 11:20 Dose: 25 mg Hydrocortisone (Anusol-Hc) 1 applic [place] 0600,1800 [facility] Last Admin: 08/01/17 06:47 Dose: 1 applic Hydrocortisone (Cortizone 1% Cream) 1 applic TOP DAILY [facility] Last Admin: 08/01/17 09:16 Dose: 1 applic Insulin Human Lispro (Humalog) 0 units SC 0600,2100 [facility] PRN Reason: Protocol Last Admin: 08/01/17 06:56 Dose: Not Given Losartan Potassium (Cozaar) 100 mg PO DAILY [facility] Last Admin: 08/01/17 09:18 Dose: 100 mg Metformin HCl (Glucophage) 500 mg PO BIDWM [facility] Last Admin: 08/01/17 09:00 Dose: 500 mg Ondansetron HCl (Zofran Tab) 4 mg PO Q6 PRN PRN Reason: Nausea/Vomiting Last Admin: 07/24/17 09:04 Dose: 4 mg Pantoprazole Sodium (Protonix Ec Tab) 40 mg PO DAILY [facility] Last Admin: 08/01/17 09:17 Dose: 40 mg Sitagliptin Phosphate (Januvia) 100 mg PO DAILY [facility] Last Admin: 08/01/17 09:20 Dose: 100 mg Temazepam (Restoril) 15 mg PO HS PRN PRN Reason: Sedation - Labs Labs: 07/30/17 13:19 07/30/17 13:19
[2017-08-02] MEDS: Insulin Lispro (humaLOG) 100 Units/ml Inj SC SCH ×2 (06:36→21:36)
[2017-08-02] MEDS: Hydrocortisone 2.5% (Rectal) CREAM PR SCH ×2 (06:37→18:16)
[2017-08-02] MEDS: Proshield Plus GEL TOP SCH ×3 (06:37→21:41)
--- NOTE | 2017-08-02 08:51 | PN ---
DATE: 08/02/2017 SUBJECTIVE: The patient is seen and examined. Interim events noted. Consults noted and appreciated. Interdisciplinary Team interventions and Physiatric followup and intervention noted and appreciated. The patient remains in Acute Rehab Unit, showing slow progress. Requiring placement to subacute rehab at the end of acute rehab sessions. The patient denies any specific medical complaint of chest pain or shortness of breath. PHYSICAL EXAMINATION: GENERAL: The patient is in no acute distress. VITAL SIGNS: Stable. HEART: S1 and S2, normal and regular. LUNGS: Good bilateral air exchange. ABDOMEN: Soft, nontender. EXTREMITIES: No edema. No calf swelling. No tenderness. No acute ischemia. CENTRAL NERVOUS SYSTEM: Essentially unchanged. DIAGNOSTIC DATA: Available diagnostic data reviewed. ASSESSMENT AND PLAN: Overall, the patient's general condition is slowly improving. Plan as ordered. Case and plan discussed with the patient and the patient's son at bedside. Robert Rios MD
[2017-08-02] MEDS: GlipiZIDE 5 mg SR Tab PO SCH (09:00)
[2017-08-02] MEDS: Pantoprazole 40 mg EC Tab PO SCH (09:02)
--- NOTE | 2017-08-02 09:23 | CP.PCM.PN ---
Subjective - Date & Time of Evaluation Date of Evaluation: 08/02/17 Time of Evaluation: 09:23 - Subjective Subjective: Patient seen in the room she is looking good today denies pain and more interactive hopefully will have a better day in therapies today. continue current care Objective - Vital Signs/Intake and Output Vital Signs (last 24 hours): Temp Pulse Resp BP Pulse Ox 98.1 F 71 20 159/86 H 97 08/01/17 20:02 08/02/17 08:59 08/01/17 20:02 08/02/17 09:02 08/01/17 20:02 - Medications Medications: Current Medications Aspirin (Aspirin Chewable) 81 mg PO DAILY [facility] Last Admin: 08/02/17 09:01 Dose: 81 mg Atorvastatin Calcium (Lipitor) 80 mg PO HS [facility] Last Admin: 08/01/17 21:19 Dose: 80 mg Carvedilol (Coreg) 6.25 mg PO Q12 [facility] Last Admin: 08/02/17 08:59 Dose: 6.25 mg Clopidogrel Bisulfate (Plavix) 75 mg PO DAILY [facility] Last Admin: 08/02/17 09:02 Dose: 75 mg Dextrose (Dextrose 50% Inj) 0 ml IV STAT PRN; Protocol PRN Reason: Hypoglycemia Protocol Dextrose (Glutose 15) 0 gm PO ONCE PRN; Protocol PRN Reason: Hypoglycemia Protocol Dimethicone (Proshield Plus Skin Protectant) 1 applic TOP Q8 [facility] Last Admin: 08/02/17 06:37 Dose: 1 applic Docusate Sodium (Colace) 100 mg PO DAILY [facility] Last Admin: 08/02/17 09:01 Dose: 100 mg Escitalopram Oxalate (Lexapro) 20 mg PO DAILY [facility] Last Admin: 08/02/17 08:59 Dose: 20 mg Furosemide (Lasix) 20 mg PO DAILY [facility] Last Admin: 08/02/17 09:00 Dose: 20 mg Glipizide (Glucotrol Xl) 5 mg PO BRK [facility] Last Admin: 08/02/17 09:00 Dose: 5 mg Glucagon (Glucagen Diagnostic Kit) 0 mg IM STAT PRN; Protocol PRN Reason: Hypoglycemia Protocol Hydralazine HCl (Apresoline) 25 mg PO Q12 PRN PRN Reason: Systolic Blood Pressure Last Admin: 07/27/17 11:20 Dose: 25 mg Hydrocortisone (Anusol-Hc) [address] [place] 0600,1800 [facility] Last Admin: 08/02/17 06:37 Dose: 1 applic Hydrocortisone (Cortizone 1% Cream) 1 applic TOP DAILY [facility] Last Admin: 08/02/17 08:59 Dose: 1 applic Insulin Human Lispro (Humalog) 0 units [place] 0600,2100 [facility] PRN Reason: Protocol Last Admin: 08/02/17 06:36 Dose: Not Given Losartan Potassium (Cozaar) 100 mg PO DAILY [facility] Last Admin: 08/02/17 09:02 Dose: 100 mg Metformin HCl (Glucophage) 500 mg PO BIDWM [facility] Last Admin: 08/02/17 09:00 Dose: 500 mg Ondansetron HCl (Zofran Tab) 4 mg PO Q6 PRN PRN Reason: Nausea/Vomiting Last Admin: 07/24/17 09:04 Dose: 4 mg Pantoprazole Sodium (Protonix Ec Tab) 40 mg PO DAILY [facility] Last Admin: 08/02/17 09:02 Dose: 40 mg Sitagliptin Phosphate (Januvia) 100 mg PO DAILY [facility] Last Admin: 08/02/17 08:59 Dose: 100 mg Temazepam (Restoril) 15 mg PO HS PRN PRN Reason: Sedation - Labs Labs: 07/30/17 13:19 07/30/17 13:19
[2017-08-02 12:22] LABS: HEMATOCRIT 34.6 % (34.0-47.0); MEAN CELL VOLUME 88.5 fl (81.0-99.0); MEAN CORPUSCULAR HEMOGLOBIN 30.2 pg (27.0-31.0); MEAN CORPUSCULAR HGB CONC 34.1 g/dL (33.0-37.0); WHITE BLOOD COUNT 9.1 K/uL (4.8-10.8)
[2017-08-02 12:41] LABS: BLOOD UREA NITROGEN 36 mg/dl (7-17); CALCIUM 9.5 mg/dL (8.4-10.2); CARBON DIOXIDE 28 mmol/L (22-30); CHLORIDE 100 mmol/L (98-107); GFR AFRICAN-AMERICAN > 60; GLUCOSE,RANDOM 179 mg/dL (65-105); POTASSIUM 4.3 MMOL/L (3.6-5.0); SODIUM 137 mmol/l (132-148)
[2017-08-02] MEDS: Enoxaparin 30 mg Syringe SC SCH (12:57)
[2017-08-03] MEDS: Insulin Lispro (humaLOG) 100 Units/ml Inj SC SCH ×2 (05:54→21:53)
[2017-08-03] MEDS: Proshield Plus GEL TOP SCH ×3 (06:01→21:52)
[2017-08-03] MEDS: Hydrocortisone 2.5% (Rectal) CREAM PR SCH ×2 (06:01→17:29)
[2017-08-03 06:31] LABS: HEMATOCRIT 32.7 % (34.0-47.0); MEAN CELL VOLUME 87.4 fl (81.0-99.0); MEAN CORPUSCULAR HEMOGLOBIN 30.2 pg (27.0-31.0); MEAN CORPUSCULAR HGB CONC 34.5 g/dL (33.0-37.0); RED CELL DISTRIBUTION WIDTH 12.9 % (11.5-14.5); WHITE BLOOD COUNT 8.8 K/uL (4.8-10.8)
[2017-08-03] MEDS: GlipiZIDE 5 mg SR Tab PO SCH (08:03)
[2017-08-03] MEDS: Enoxaparin 30 mg Syringe SC SCH (08:59)
[2017-08-03] MEDS: Pantoprazole 40 mg EC Tab PO SCH (09:02)
--- NOTE | 2017-08-03 09:45 | CP.PCM.PN ---
Subjective - Date & Time of Evaluation Date of Evaluation: 08/03/17 Time of Evaluation: 07:40 - Subjective Subjective: Patient seen and examined with Dr Gabriel reece. Pt having breakfast in the morning, reports feeling well. Denies chest pain, SOB, n,v,abd pain. no overnight events. Improving on PT Objective - Vital Signs/Intake and Output Vital Signs (last 24 hours): Temp Pulse Resp BP Pulse Ox 97.7 F 65 20 158/83 H 98 08/02/17 20:07 08/03/17 09:04 08/02/17 20:07 08/03/17 09:04 08/02/17 20:07 - Medications Medications: Current Medications Aspirin (Aspirin Chewable) 81 mg PO DAILY [facility] Last Admin: 08/03/17 09:02 Dose: 81 mg Atorvastatin Calcium (Lipitor) 80 mg PO HS [facility] Last Admin: 08/02/17 21:40 Dose: 80 mg Carvedilol (Coreg) 6.25 mg PO Q12 [facility] Last Admin: 08/03/17 09:00 Dose: 6.25 mg Clopidogrel Bisulfate (Plavix) 75 mg PO DAILY [facility] Last Admin: 08/03/17 09:04 Dose: 75 mg Dextrose (Dextrose 50% Inj) 0 ml IV STAT PRN; Protocol PRN Reason: Hypoglycemia Protocol Dextrose (Glutose 15) 0 gm PO ONCE PRN; Protocol PRN Reason: Hypoglycemia Protocol Dimethicone (Proshield Plus Skin Protectant) 1 applic TOP Q8 [facility] Last Admin: 08/03/17 06:01 Dose: 1 applic Docusate Sodium (Colace) 100 mg PO DAILY [facility] Last Admin: 08/03/17 09:01 Dose: 100 mg Enoxaparin Sodium (Lovenox) 30 mg SC DAILY [facility] PRN Reason: Protocol Last Admin: 08/03/17 08:59 Dose: 30 mg Escitalopram Oxalate (Lexapro) 20 mg PO DAILY [facility] Last Admin: 08/03/17 09:01 Dose: 20 mg Furosemide (Lasix) 20 mg PO DAILY [facility] Last Admin: 08/03/17 09:03 Dose: 20 mg Glipizide (Glucotrol Xl) 5 mg PO BRK [facility] Last Admin: 08/03/17 08:03 Dose: 5 mg Glucagon (Glucagen Diagnostic Kit) 0 mg IM STAT PRN; Protocol PRN Reason: Hypoglycemia Protocol Hydralazine HCl (Apresoline) 25 mg PO Q12 PRN PRN Reason: Systolic Blood Pressure Last Admin: 07/27/17 11:20 Dose: 25 mg Hydrocortisone (Anusol-Hc) 1 applic [place] 0600,1800 [facility] Last Admin: 08/03/17 06:01 Dose: 1 applic Hydrocortisone (Cortizone 1% Cream) 1 applic TOP DAILY [facility] Last Admin: 08/03/17 09:05 Dose: 1 applic Insulin Human Lispro (Humalog) 0 units [place] 0600,2100 [facility] PRN Reason: Protocol Last Admin: 08/03/17 05:54 Dose: Not Given Losartan Potassium (Cozaar) 100 mg PO DAILY [facility] Last Admin: 08/03/17 09:04 Dose: 100 mg Metformin HCl (Glucophage) 500 mg PO BIDWM [facility] Last Admin: 08/03/17 08:02 Dose: 500 mg Ondansetron HCl (Zofran Tab) 4 mg PO Q6 PRN PRN Reason: Nausea/Vomiting Last Admin: 07/24/17 09:04 Dose: 4 mg Pantoprazole Sodium (Protonix Ec Tab) 40 mg PO DAILY [facility] Last Admin: 08/03/17 09:02 Dose: 40 mg Sitagliptin Phosphate (Januvia) 100 mg PO DAILY [facility] Last Admin: 08/03/17 09:02 Dose: 100 mg Temazepam (Restoril) 15 mg PO HS PRN PRN Reason: Sedation - Labs Labs: 08/03/17 05:20 08/02/17 12:15 - Constitutional Appears: Non-toxic, No Acute Distress - Head Exam Head Exam: ATRAUMATIC, NORMOCEPHALIC - Eye Exam Eye Exam: Normal appearance - ENT Exam ENT Exam: Mucous Membranes Moist - Neck Exam Neck Exam: Normal Inspection - Respiratory Exam Respiratory Exam: Clear to Ausculation Bilateral. absent: Rales, Rhonchi, Wheezes, Stridor - Cardiovascular Exam Cardiovascular Exam: REGULAR RHYTHM, +S1, +S2 - GI/Abdominal Exam GI & Abdominal Exam: Soft, Normal Bowel Sounds. absent: Guarding, Tenderness - Back Exam Back Exam: NORMAL INSPECTION - Neurological Exam Neurological Exam: Alert, Awake Neuro motor strength exam: Left Upper Extremity: 5, Right Upper Extremity: 4, Left Lower Extremity: 5, Right Lower Extremity: 4 Additional comments: mild right hemiparesis - Psychiatric Exam Psychiatric exam: Normal Mood - Skin Skin Exam: Intact Assessment and Plan - Assessment and Plan (Free Text) Plan: Assessment and Plan (1) Status post CVA Assessment & Plan: -residual right hemiparesis -c/w PT, OT Status: Acute (2) Hypertension Assessment & Plan: controlled Status: Chronic (3) Diabetes mellitus Assessment & Plan: c/w glipizide and januvia -Hgba1c Status: Acute
--- NOTE | 2017-08-03 18:08 | CP.PCM.PN ---
Subjective - Date & Time of Evaluation Date of Evaluation: 08/03/17 Time of Evaluation: 18:07 - Subjective Subjective: Patient seen in room doing ok tried more in therapies today and was able to ambulate 18' continue current care Objective - Vital Signs/Intake and Output Vital Signs (last 24 hours): Temp Pulse Resp BP Pulse Ox 97.5 F L 65 20 158/83 H 98 08/03/17 08:00 08/03/17 09:04 08/03/17 08:00 08/03/17 09:04 08/03/17 08:00 - Medications Medications: Current Medications Aspirin (Aspirin Chewable) 81 mg PO DAILY [facility] Last Admin: 08/03/17 09:02 Dose: 81 mg Atorvastatin Calcium (Lipitor) 80 mg PO HS [facility] Last Admin: 08/02/17 21:40 Dose: 80 mg Carvedilol (Coreg) 6.25 mg PO Q12 [facility] Last Admin: 08/03/17 09:00 Dose: 6.25 mg Clopidogrel Bisulfate (Plavix) 75 mg PO DAILY [facility] Last Admin: 08/03/17 09:04 Dose: 75 mg Dextrose (Dextrose 50% Inj) 0 ml IV STAT PRN; Protocol PRN Reason: Hypoglycemia Protocol Dextrose (Glutose 15) 0 gm PO ONCE PRN; Protocol PRN Reason: Hypoglycemia Protocol Dimethicone (Proshield Plus Skin Protectant) 1 applic TOP Q8 [facility] Last Admin: 08/03/17 13:16 Dose: 1 applic Docusate Sodium (Colace) 100 mg PO DAILY [facility] Last Admin: 08/03/17 09:01 Dose: 100 mg Enoxaparin Sodium (Lovenox) 30 mg SC DAILY [facility] PRN Reason: Protocol Last Admin: 08/03/17 08:59 Dose: 30 mg Escitalopram Oxalate (Lexapro) 20 mg PO DAILY [facility] Last Admin: 08/03/17 09:01 Dose: 20 mg Furosemide (Lasix) 20 mg PO DAILY [facility] Last Admin: 08/03/17 09:03 Dose: 20 mg Glipizide (Glucotrol Xl) 5 mg PO BRK [facility] Last Admin: 08/03/17 08:03 Dose: 5 mg Glucagon (Glucagen Diagnostic Kit) 0 mg IM STAT PRN; Protocol PRN Reason: Hypoglycemia Protocol Hydralazine HCl (Apresoline) 25 mg PO Q12 PRN PRN Reason: Systolic Blood Pressure Last Admin: 07/27/17 11:20 Dose: 25 mg Hydrocortisone (Anusol-Hc) 1 applic [place] 0600,1800 [facility] Last Admin: 08/03/17 17:29 Dose: 1 applic Hydrocortisone (Cortizone 1% Cream) 1 applic TOP DAILY [facility] Last Admin: 08/03/17 09:05 Dose: 1 applic Insulin Human Lispro (Humalog) 0 units [place] 0600,2100 [facility] PRN Reason: Protocol Last Admin: 08/03/17 05:54 Dose: Not Given Losartan Potassium (Cozaar) 100 mg PO DAILY [facility] Last Admin: 08/03/17 09:04 Dose: 100 mg Metformin HCl (Glucophage) 500 mg PO BIDWM [facility] Last Admin: 08/03/17 17:30 Dose: 500 mg Ondansetron HCl (Zofran Tab) 4 mg PO Q6 PRN PRN Reason: Nausea/Vomiting Last Admin: 07/24/17 09:04 Dose: 4 mg Pantoprazole Sodium (Protonix Ec Tab) 40 mg PO DAILY [facility] Last Admin: 08/03/17 09:02 Dose: 40 mg Sitagliptin Phosphate (Januvia) 100 mg PO DAILY [facility] Last Admin: 08/03/17 09:02 Dose: 100 mg Temazepam (Restoril) 15 mg PO HS PRN PRN Reason: Sedation - Labs Labs: 08/03/17 05:20 08/02/17 12:15
[2017-08-04] MEDS: Hydrocortisone 2.5% (Rectal) CREAM PR SCH ×2 (07:00→17:52)
[2017-08-04] MEDS: Proshield Plus GEL TOP SCH ×3 (07:00→21:27)
[2017-08-04] MEDS: Insulin Lispro (humaLOG) 100 Units/ml Inj SC SCH ×2 (07:07→21:17)
[2017-08-04] MEDS ORDERED: GlipiZIDE 5 mg SR Tab PO SCH (08:00)
--- NOTE | 2017-08-04 09:07 | CP.PCM.PN ---
Subjective - Date & Time of Evaluation Date of Evaluation: 08/04/17 Time of Evaluation: 07:35 - Subjective Subjective: Patient seen and examined with Dr Gabriel reece. Patient repots improving with PT. Denies chest pain, SOB, n,v,abd pain. no overnight events. Hgba1c 9.6 Metformin and glipizide dose increased. Objective - Vital Signs/Intake and Output Vital Signs (last 24 hours): Temp Pulse Resp BP Pulse Ox 97.5 F L 66 21 190/83 H 96 08/04/17 09:03 08/04/17 09:03 08/04/17 09:03 08/04/17 09:03 08/04/17 09:03 - Medications Medications: Current Medications Aspirin (Aspirin Chewable) 81 mg PO DAILY [facility] Last Admin: 08/03/17 09:02 Dose: 81 mg Atorvastatin Calcium (Lipitor) 80 mg PO HS [facility] Last Admin: 08/03/17 21:38 Dose: 80 mg Carvedilol (Coreg) 6.25 mg PO Q12 [facility] Last Admin: 08/03/17 21:39 Dose: 6.25 mg Clopidogrel Bisulfate (Plavix) 75 mg PO DAILY [facility] Last Admin: 08/03/17 09:04 Dose: 75 mg Dextrose (Dextrose 50% Inj) 0 ml IV STAT PRN; Protocol PRN Reason: Hypoglycemia Protocol Dextrose (Glutose 15) 0 gm PO ONCE PRN; Protocol PRN Reason: Hypoglycemia Protocol Dimethicone (Proshield Plus Skin Protectant) 1 applic TOP Q8 [facility] Last Admin: 08/04/17 07:00 Dose: 1 applic Docusate Sodium (Colace) 100 mg PO DAILY [facility] Last Admin: 08/03/17 09:01 Dose: 100 mg Enoxaparin Sodium (Lovenox) 30 mg SC DAILY [facility] PRN Reason: Protocol Last Admin: 08/03/17 08:59 Dose: 30 mg Escitalopram Oxalate (Lexapro) 20 mg PO DAILY [facility] Last Admin: 08/03/17 09:01 Dose: 20 mg Furosemide (Lasix) 20 mg PO DAILY [facility] Last Admin: 08/03/17 09:03 Dose: 20 mg Glipizide (Glucotrol Xl) 10 mg PO BRK [facility] Glucagon (Glucagen Diagnostic Kit) 0 mg IM STAT PRN; Protocol PRN Reason: Hypoglycemia Protocol Hydralazine HCl (Apresoline) 25 mg PO Q12 PRN PRN Reason: Systolic Blood Pressure Last Admin: 07/27/17 11:20 Dose: 25 mg Hydrocortisone (Anusol-Hc) 1 applic [place] 0600,1800 [facility] Last Admin: 08/04/17 07:00 Dose: 1 applic Hydrocortisone (Cortizone 1% Cream) 1 applic TOP DAILY [facility] Last Admin: 08/03/17 09:05 Dose: 1 applic Hydrocortisone (Cortizone 1% Cream) 1 applic TOP DAILY [facility] Insulin Human Lispro (Humalog) 0 units [place] 0600,2100 [facility] PRN Reason: Protocol Last Admin: 08/04/17 07:07 Dose: Not Given Losartan Potassium (Cozaar) 100 mg PO DAILY [facility] Last Admin: 08/03/17 09:04 Dose: 100 mg Metformin HCl (Glucophage) 1,000 mg PO BIDWM [facility] Ondansetron HCl (Zofran Tab) 4 mg PO Q6 PRN PRN Reason: Nausea/Vomiting Last Admin: 07/24/17 09:04 Dose: 4 mg Pantoprazole Sodium (Protonix Ec Tab) 40 mg PO DAILY [facility] Last Admin: 08/03/17 09:02 Dose: 40 mg Sitagliptin Phosphate (Januvia) 100 mg PO DAILY [facility] Last Admin: 08/03/17 09:02 Dose: 100 mg Temazepam (Restoril) 15 mg PO HS PRN PRN Reason: Sedation Temazepam (Restoril) 15 mg PO HS PRN PRN Reason: Insomnia Temazepam (Restoril) 15 mg PO HS PRN PRN Reason: Anxiety - Labs Labs: 08/03/17 05:20 08/02/17 12:15 - Constitutional Appears: Non-toxic, No Acute Distress - Head Exam Head Exam: ATRAUMATIC, NORMOCEPHALIC - Eye Exam Eye Exam: Normal appearance - ENT Exam ENT Exam: Normal Exam - Respiratory Exam Respiratory Exam: Clear to Ausculation Bilateral. absent: Rales, Rhonchi, Wheezes - Cardiovascular Exam Cardiovascular Exam: REGULAR RHYTHM, +S1, +S2 - GI/Abdominal Exam GI & Abdominal Exam: Soft, Normal Bowel Sounds. absent: Tenderness - Extremities Exam Extremities Exam: Normal Inspection. absent: Pedal Edema Additional comments: right residual hemiparesis - Neurological Exam Neurological Exam: Alert, Awake, Oriented x3 - Psychiatric Exam Psychiatric exam: Normal Mood - Skin Skin Exam: Intact Assessment and Plan - Assessment and Plan (Free Text) Plan: Assessment and Plan (1) Status post CVA Assessment & Plan: -residual right hemiparesis -c/w PT, OT Status: Acute (2) Hypertension Assessment & Plan: controlled Status: Chronic (3) Diabetes mellitus Assessment & Plan: -uncontrolled -metformin and glipizide dose increased -Hgba1c 9.6 Status: Acute 4) DVT prophylaxis -lovenox
[2017-08-04] MEDS: Enoxaparin 30 mg Syringe SC SCH (09:33)
[2017-08-04] MEDS: Pantoprazole 40 mg EC Tab PO SCH (09:35)
[2017-08-04] MEDS: GlipiZIDE 10 mg SR Tab PO SCH (09:43)
--- NOTE | 2017-08-04 14:10 | CP.PCM.CON ---
History of Present Illness - History of Present Illness History of Present Illness: Pt seen along with son. Pt discussed therapy over the week and gains made. Pt' s affect slightly brighter today, son expressed support and encoruagment. Son reported mother's extroverted posture, and current status. Both reminded of the goals of therapy, both short and [place] [facility]. Cognitive strategies introduced to both son and patient to enhance mood. 1:50-2:08. plan: Continued Sup therapy Past Patient History - Infectious Disease Hx of Infectious Diseases: None - Past Medical History & Family History Past Medical History?: Yes - Past Social History Smoking Status: Never Smoked Alcohol: None Drugs: Denies Home Situation {Lives}: Alone (4 steps) - CARDIAC Hx Hypertension: Yes - PULMONARY Hx Chronic Obstructive Pulmonary Disease (COPD): No - NEUROLOGICAL HX Cerebrovascular Accident: Yes Hx Syncope: Yes - HEENT Hx HEENT Problems: Yes Other/Comment: R eye lasik sx, wears glasses - RENAL Hx Chronic Kidney Disease: No Hx Renal Failure: No - ENDOCRINE/METABOLIC Hx Diabetes Mellitus Type 2: Yes - HEMATOLOGICAL/ONCOLOGICAL Hx Blood Disorders: No Hx AIDS: No Hx Human Immunodeficiency Virus (HIV): No - INTEGUMENTARY Hx Dermatological Problems: No - MUSCULOSKELETAL/RHEUMATOLOGICAL Hx Musculoskeletal Disorders: Yes Hx Arthritis: Yes Hx Falls: No Hx Unsteady Gait: Yes - GASTROINTESTINAL Hx Gastrointestinal Disorders: Yes Hx Constipation: Yes Hx Hemorrhoids: Yes - GENITOURINARY/GYNECOLOGICAL Hx Genitourinary Disorders: No Hx Incontinence: Yes (Post CVA) - PSYCHIATRIC Hx Psychophysiologic Disorder: No Hx Substance Use: No - SURGICAL HISTORY Hx Surgeries: Yes Hx Appendectomy: Yes Hx Cardiac Catheterization: Yes Hx Section: Yes Hx Coronary Stent: Yes Hx Eye Surgery: Yes (R eye lasik sx) - ANESTHESIA Hx Anesthesia: Yes Hx Anesthesia Reactions: No Hx Malignant Hyperthermia: No Has any member of the family had a problem w/ anesthesia?: No Meds Allergies/Adverse Reactions: Allergies Allergy/AdvReac Type Severity Reaction Status Date / Time No Known Allergies Allergy Verified 07/14/17 12:31 - Medications Medications: Current Medications Aspirin (Aspirin Chewable) 81 mg PO DAILY [facility] Last Admin: 08/04/17 09:35 Dose: 81 mg Atorvastatin Calcium (Lipitor) 80 mg PO HS [facility] Last Admin: 08/03/17 21:38 Dose: 80 mg Carvedilol (Coreg) 6.25 mg PO Q12 [facility] Last Admin: 08/04/17 09:35 Dose: 6.25 mg Clopidogrel Bisulfate (Plavix) 75 mg PO DAILY [facility] Last Admin: 08/04/17 09:34 Dose: 75 mg Dextrose (Dextrose 50% Inj) 0 ml IV STAT PRN; Protocol PRN Reason: Hypoglycemia Protocol Dextrose (Glutose 15) 0 gm PO ONCE PRN; Protocol PRN Reason: Hypoglycemia Protocol Dimethicone (Proshield Plus Skin Protectant) 1 applic TOP Q8 [facility] Last Admin: 08/04/17 07:00 Dose: 1 applic Docusate Sodium (Colace) 100 mg PO DAILY [facility] Last Admin: 08/04/17 09:35 Dose: 100 mg Enoxaparin Sodium (Lovenox) 30 mg SC DAILY [facility] PRN Reason: Protocol Last Admin: 08/04/17 09:33 Dose: 30 mg Escitalopram Oxalate (Lexapro) 20 mg PO DAILY [facility] Last Admin: 08/04/17 09:39 Dose: 20 mg Furosemide (Lasix) 20 mg PO DAILY [facility] Last Admin: 08/04/17 09:35 Dose: 20 mg Glipizide (Glucotrol Xl) 10 mg PO BRK [facility] Last Admin: 08/04/17 09:43 Dose: 10 mg Glucagon (Glucagen Diagnostic Kit) 0 mg IM STAT PRN; Protocol PRN Reason: Hypoglycemia Protocol Hydralazine HCl (Apresoline) 25 mg PO Q12 PRN PRN Reason: Systolic Blood Pressure Last Admin: 07/27/17 11:20 Dose: 25 mg Hydrocortisone (Anusol-Hc) 1 applic [place] 0600,1800 [facility] Last Admin: 08/04/17 07:00 Dose: 1 applic Hydrocortisone (Cortizone 1% Cream) 1 applic TOP DAILY [facility] Last Admin: 08/04/17 09:36 Dose: 1 applic Hydrocortisone (Cortizone 1% Cream) 1 applic TOP DAILY [facility] Last Admin: 08/04/17 09:36 Dose: 1 applic Insulin Human Lispro (Humalog) 0 units [place] 0600,2100 [facility] PRN Reason: Protocol Last Admin: 08/04/17 07:07 Dose: Not Given Losartan Potassium (Cozaar) 100 mg PO DAILY [facility] Last Admin: 08/04/17 09:34 Dose: 100 mg Metformin HCl (Glucophage) 1,000 mg PO BIDWM [facility] Ondansetron HCl (Zofran Tab) 4 mg PO Q6 PRN PRN Reason: Nausea/Vomiting Last Admin: 07/24/17 09:04 Dose: 4 mg Pantoprazole Sodium (Protonix Ec Tab) 40 mg PO DAILY [facility] Last Admin: 08/04/17 09:35 Dose: 40 mg Sitagliptin Phosphate (Januvia) 100 mg PO DAILY [facility] Last Admin: 08/04/17 09:44 Dose: 100 mg Temazepam (Restoril) 15 mg PO HS PRN PRN Reason: Insomnia Temazepam (Restoril) 15 mg PO HS PRN PRN Reason: Anxiety Results - Vital Signs Recent Vital Signs: Last Vital Signs Temp 97.5 F L 08/04/17 09:03 Pulse 66 08/04/17 09:35 Resp 21 08/04/17 09:03 BP 170/80 H 08/04/17 09:35 Pulse Ox 96 08/04/17 09:03 - Labs Result Diagrams: 08/03/17 05:20 08/02/17 12:15 Labs: Laboratory Results - last 24 hr 08/03/17 08/04/17 20:40 07:06 POC Glucose (mg/dL) 173 H 139 H
[2017-08-05] MEDS: Hydrocortisone 2.5% (Rectal) CREAM PR SCH ×2 (05:49→17:49)
[2017-08-05] MEDS: Proshield Plus GEL TOP SCH ×3 (05:49→21:35)
[2017-08-05] MEDS: Insulin Lispro (humaLOG) 100 Units/ml Inj SC SCH ×2 (06:02→21:34)
[2017-08-05] MEDS: GlipiZIDE 10 mg SR Tab PO SCH (08:00)
[2017-08-05 08:32] LABS: BLOOD UREA NITROGEN 29 mg/dl (7-17); CALCIUM 9.3 mg/dL (8.4-10.2); CARBON DIOXIDE 25 mmol/L (22-30); CHLORIDE 99 mmol/L (98-107); GFR AFRICAN-AMERICAN > 60; GLUCOSE,RANDOM 176 mg/dL (65-105); POTASSIUM 4.3 MMOL/L (3.6-5.0); SODIUM 135 mmol/l (132-148)
[2017-08-05] MEDS: Enoxaparin 30 mg Syringe SC SCH (09:04)
[2017-08-05] MEDS: Pantoprazole 40 mg EC Tab PO SCH (09:06)
--- NOTE | 2017-08-05 09:59 | CP.PCM.PN ---
Subjective - Date & Time of Evaluation Date of Evaluation: 08/05/17 Time of Evaluation: 09:59 - Subjective Subjective: Patient seen in PT and was a max A transfer no pain and denies feeling unwell but very limited function Objective - Vital Signs/Intake and Output Vital Signs (last 24 hours): Temp Pulse Resp BP Pulse Ox 98.2 F 69 20 158/70 H 96 08/05/17 07:53 08/05/17 09:06 08/05/17 07:53 08/05/17 09:06 08/05/17 07:53 - Medications Medications: Current Medications Aspirin (Aspirin Chewable) 81 mg PO DAILY [facility] Last Admin: 08/05/17 09:06 Dose: 81 mg Atorvastatin Calcium (Lipitor) 80 mg PO HS [facility] Last Admin: 08/04/17 21:18 Dose: 80 mg Carvedilol (Coreg) 6.25 mg PO Q12 [facility] Last Admin: 08/05/17 09:04 Dose: 6.25 mg Clopidogrel Bisulfate (Plavix) 75 mg PO DAILY [facility] Last Admin: 08/05/17 09:06 Dose: 75 mg Dextrose (Dextrose 50% Inj) 0 ml IV STAT PRN; Protocol PRN Reason: Hypoglycemia Protocol Dextrose (Glutose 15) 0 gm PO ONCE PRN; Protocol PRN Reason: Hypoglycemia Protocol Dimethicone (Proshield Plus Skin Protectant) 1 applic TOP Q8 [facility] Last Admin: 08/05/17 05:49 Dose: 1 applic Docusate Sodium (Colace) 100 mg PO DAILY [facility] Last Admin: 08/05/17 09:05 Dose: 100 mg Enoxaparin Sodium (Lovenox) 30 mg SC DAILY [facility] PRN Reason: Protocol Last Admin: 08/05/17 09:04 Dose: 30 mg Escitalopram Oxalate (Lexapro) 20 mg PO DAILY [facility] Last Admin: 08/05/17 09:12 Dose: 20 mg Furosemide (Lasix) 20 mg PO DAILY [facility] Last Admin: 08/05/17 09:05 Dose: 20 mg Glipizide (Glucotrol Xl) 10 mg PO BRK [facility] Last Admin: 08/05/17 08:00 Dose: 10 mg Glucagon (Glucagen Diagnostic Kit) 0 mg IM STAT PRN; Protocol PRN Reason: Hypoglycemia Protocol Hydralazine HCl (Apresoline) 25 mg PO Q12 PRN PRN Reason: Systolic Blood Pressure Last Admin: 12/14/17 11:20 Dose: 25 mg Hydrocortisone (Anusol-Hc) 1 applic DE 0600,1800 [facility] Last Admin: 08/05/17 05:49 Dose: 1 applic Hydrocortisone (Cortizone 1% Cream) 1 applic TOP DAILY [facility] Last Admin: 08/05/17 09:09 Dose: 1 applic Hydrocortisone (Cortizone 1% Cream) 1 applic TOP DAILY [facility] Last Admin: 08/05/17 09:10 Dose: 1 applic Insulin Human Lispro (Humalog) 0 units SC 0600,2100 [facility] PRN Reason: Protocol Last Admin: 08/05/17 06:02 Dose: Not Given Losartan Potassium (Cozaar) 100 mg PO DAILY [facility] Last Admin: 08/05/17 09:06 Dose: 100 mg Metformin HCl (Glucophage) 1,000 mg PO BIDWM [facility] Last Admin: 08/05/17 08:00 Dose: 1,000 mg Ondansetron HCl (Zofran Tab) 4 mg PO Q6 PRN PRN Reason: Nausea/Vomiting Last Admin: 07/24/17 09:04 Dose: 4 mg Pantoprazole Sodium (Protonix Ec Tab) 40 mg PO DAILY [facility] Last Admin: 08/05/17 09:06 Dose: 40 mg Sitagliptin Phosphate (Januvia) 100 mg PO DAILY [facility] Last Admin: 08/05/17 09:05 Dose: 100 mg Temazepam (Restoril) 15 mg PO HS PRN PRN Reason: Insomnia Temazepam (Restoril) 15 mg PO HS PRN PRN Reason: Anxiety - Labs Labs: 08/03/17 05:20 08/05/17 06:30
--- NOTE | 2017-08-05 11:43 | PN ---
DATE: 08/05/2017 SUBJECTIVE: The patient is seen and examined. Interim events noted. Consults noted and appreciated. Physiatric intervention noted and appreciated. Patient remains in Acute Rehab Unit. The patient feels okay. Denies any specific complaints. No chest pain. No shortness breath. PHYSICAL EXAMINATION: GENERAL: The patient is in no acute distress. VITAL SIGNS: Stable. HEART: S1 and S2, normal and regular. LUNGS: Good bilateral air exchange. ABDOMEN: Soft and nontender. EXTREMITIES: No edema. No calf swelling. No tenderness. No acute ischemia. CENTRAL NERVOUS SYSTEM: Essentially unchanged. DIAGNOSTIC DATA: Available diagnostic data reviewed. Accu-Cheks are acceptable. ASSESSMENT AND PLAN: Overall, the patient is clinically stable. Plan as ordered. Robert Rios MD
[2017-08-06] MEDS: Hydrocortisone 2.5% (Rectal) CREAM PR SCH ×2 (06:34→17:35)
[2017-08-06] MEDS: Insulin Lispro (humaLOG) 100 Units/ml Inj SC SCH ×2 (06:35→20:59)
[2017-08-06] MEDS: Proshield Plus GEL TOP SCH ×3 (06:36→21:03)
[2017-08-06 07:51] LABS: HEMATOCRIT 34.2 % (34.0-47.0); MEAN CELL VOLUME 89.3 fl (81.0-99.0); MEAN CORPUSCULAR HEMOGLOBIN 29.5 pg (27.0-31.0); RED CELL DISTRIBUTION WIDTH 12.8 % (11.5-14.5); WHITE BLOOD COUNT 8.9 K/uL (4.8-10.8)
[2017-08-06] MEDS: GlipiZIDE 10 mg SR Tab PO SCH (08:31)
[2017-08-06] MEDS: Pantoprazole 40 mg EC Tab PO SCH (08:32)
[2017-08-06] MEDS: Enoxaparin 30 mg Syringe SC SCH (08:33)
--- NOTE | 2017-08-06 13:34 | PN ---
DATE: 08/06/2017 SUBJECTIVE: The patient seen and examined. Interim events noted. Consults noted and appreciated. The patient remains in Acute Rehab Unit. The patient feels okay. Denies any complaint of chest pain or shortness of breath. No new issue reported by nursing staff. PHYSICAL EXAMINATION: GENERAL: The patient is in no acute distress. VITAL SIGNS: Stable. Physical exam is essentially unchanged. DIAGNOSTIC DATA: Available diagnostic data reviewed. ASSESSMENT AND PLAN: Overall, the patient is medically stable. Plan as ordered. Robert Rios MD
[2017-08-07] MEDS: Proshield Plus GEL TOP SCH ×3 (05:59→21:09)
[2017-08-07] MEDS: Hydrocortisone 2.5% (Rectal) CREAM PR SCH ×2 (05:59→17:11)
[2017-08-07] MEDS: Insulin Lispro (humaLOG) 100 Units/ml Inj SC SCH ×2 (06:01→21:14)
[2017-08-07] MEDS: GlipiZIDE 10 mg SR Tab PO SCH (08:52)
[2017-08-07] MEDS: Enoxaparin 30 mg Syringe SC SCH (08:53)
[2017-08-07] MEDS: Pantoprazole 40 mg EC Tab PO SCH (08:53)
--- NOTE | 2017-08-07 12:28 | PN ---
DATE: 08/07/2017 SUBJECTIVE: The patient is seen and examined. Interim events noted. The patient remains in Acute Rehab Unit. The patient feels okay. There is no new complaint. No specific issue reported by nursing staff. PHYSICAL EXAMINATION GENERAL: The patient is in no acute distress. VITAL SIGNS: Stable. Physical exam is essentially unchanged. DIAGNOSTIC DATA: Available diagnostic data reviewed. ASSESSMENT AND PLAN: Overall, the patient's general medical condition is stable and improving. Plan as ordered. Robert Rios MD
[2017-08-08] MEDS: Hydrocortisone 2.5% (Rectal) CREAM PR SCH ×2 (06:03→17:08)
[2017-08-08] MEDS: Proshield Plus GEL TOP SCH ×3 (06:04→22:24)
[2017-08-08] MEDS: Insulin Lispro (humaLOG) 100 Units/ml Inj SC SCH ×2 (06:08→21:26)
[2017-08-08] MEDS: Enoxaparin 30 mg Syringe SC SCH (08:49)
[2017-08-08] MEDS: Pantoprazole 40 mg EC Tab PO SCH (08:50)
[2017-08-08] MEDS: GlipiZIDE 10 mg SR Tab PO SCH (08:51)
--- NOTE | 2017-08-08 12:48 | PN ---
DATE: 08/08/2017 SUBJECTIVE: The patient seen and examined. Interim events noted. The patient remains in Acute Rehab Unit. Seems okay. Denies any specific complaint of chest pain or shortness of breath. PHYSICAL EXAMINATION: GENERAL: The patient is in no acute distress. VITAL SIGNS: Stable. HEART: S1 and S2, normal and regular. LUNGS: Good bilateral air exchange. ABDOMEN: Soft, nontender. EXTREMITIES: No edema. No calf swelling. No tenderness. No acute ischemia. CENTRAL NERVOUS SYSTEM: Essentially unchanged. DIAGNOSTIC DATA: Available diagnostic data reviewed. Accu-Cheks are acceptable. ASSESSMENT AND PLAN: Overall, the patient is clinically stable, showing slight improvement. The patient's plan discussed with the patient and the patient's brother at bedside at length. Robert Rios MD
--- NOTE | 2017-08-08 13:09 | PSY.TMCNF ---
Nursing - Vital Signs Vital Signs (Last 8 hours): Vital Signs 08/08/17 08/08/17 08/08/17 08:46 08:49 08:50 Temperature 97.9 F Pulse Rate 72 Respiratory 21 Rate Blood Pressure 154/73 H 154/76 H 154/76 H O2 Sat by Pulse 99 Oximetry 08/08/17 08/08/17 08:51 09:00 Temperature 97.9 F Pulse Rate 74 74 Respiratory 21 Rate Blood Pressure 154/76 H 154/76 H O2 Sat by Pulse Oximetry Pain: 0 - Precautions: Precautions: Fall Prevention, Aspiration, Pressure Ulcer - Medications/Other Issues Comment: Goals: 1. Pt to consume 75-100% of meals(not met, continue). 2. Blood glucoses to be between 70-180 mg/dl( met, continue). 3. Deter wt loss( met, continue). Follow-up assessment due by 08/11/17. - Consults Comment: Dr. Sierra, Dr. Goodson - Wound Sacrum Wound Type: Moisture Associated Skin Damage Wound Stage: STAGE II Wound Shape: Irregular Wound Edges: Closed Wound Bed Greatest Portion: Pale [place] Wound Bed Lesser Portion: Pale [place] Wound Drainage Odor: None/Absent Wound General Appearance: Clean/Dry Wound Dressing Status: Dry & Intact Dressing Changed: Yes Wound Primary Dressing Type: Gauze Pads Comment: cleans with ns and skin prep - Toileting Toileting: Dependent - Bladder Management Bladder Pattern: Normal Voiding Method: Toilet, Bedpan, Diaper Bladder Management: Dependent Frequency of Accidents: >5 - Bowel Management Bowel Pattern: Incontinent Bowel Management: Dependent Frequency of Accidents: >5 - Transfers Transfers: Dependent - ADL's ADL's: Dependent - Pain Management Comments: denies any pain - Patient/Family Teaching Comments: N/A - Goals/Time Frame Comments: Per multidisciplinary care plans and goals - Provider Provider: Mahsa MCCALLUMN RN CRRN Physical Therapy - Bed Mobility Bed Mobility: Maximum Assistance - Transfers Wheelchair to Mat: Maximum Assistance, Dependent Sit to Stand: Maximum Assistance, Dependent - Ambulation Level of Assistance: Maximum Assistance Distance (ft.): 18 Assistive Devices: N/A Orthoses: n/a Comment: 18 feet with wall bar with max A, total A for LE managment and max to mod A for trunk control - Stair Negotiation Stairs: Level of Assistance: Not Tested Comment: not safe at this time - Standing Balance Static Stand: Maximal Assistance Dynamic Stand: Maximal Assistance, Dependent - Pain Pain (assessed during therapy session): 0 Comment: patient denies pain - Insight/Carryover Insight/Carryover: Fair - Patient/Family Education Comment: Pt provided with education on recovery after CVA, compenstory strategies for hemiplegic technique ADLs and transfers, pt limited with education secondary to decreased volition, requires further education and training with pt and family - Assessment/Plan Assessment: Pt requires verbal cues for encouragement to participate in sessions. Pt continues to demonstrate mod verbal cues for [id number] direction following and for redirection to task. Pt participates in word finding and direction following tasks. Pt requires mod verbal cues for initiation to task and attention to task. Pt continues to present flat affect although initiates conversations at times. - Goals Timeframe: 7 days Goals: MIN A UE Dressing. MAX A LE dressing. MAX A toileting. MAX A toilet txfers. MAX A bathing. S feeding - Provider License Number: [id number] Occupational Therapy - Arousal/Attention/Orientation Level of Consciousness: Awake, Alert Patient Orientation: Person, Place, Time - ADL/IADL Self Feeding: Verbal Cues, Set-up Help, Moderate Assistance Grooming: Supervision, Verbal Cues, Set-up Help Dressing-Upper Extremity: Maximum Assistance Dressing-Lower Extremity: Dependent - Sitting Balance Static Sitting: Minimal Assistance Dynamic Sitting: Moderate Assistance, Maximal Assistance - Transfers Wheelchair to Bed Transfers: Dependent Toilet Transfers: Dependent - Wheelchair Management Level of Assistance: Dependent - Upper Extremity Status Right Upper Extremity Comment: PROM WFL, pt with full AROM in wrist and digits only, trace muscle activation noted in all other digits Left Upper Extremity Comment: AROM WFL - Pain Pain (assessed during therapy session): 0 Comment: patient denies pain - Insight/Carryover Insight/Carryover: Fair - Patient/Family Education Comment: Pt provided with education on recovery after CVA, compenstory strategies for hemiplegic technique ADLs and transfers, pt limited with education secondary to decreased volition, requires further education and training with pt and family - Assessment/Plan Assessment: Pt requires verbal cues for encouragement to participate in sessions. Pt continues to demonstrate mod verbal cues for [id number] direction following and for redirection to task. Pt participates in word finding and direction following tasks. Pt requires mod verbal cues for initiation to task and attention to task. Pt continues to present flat affect although initiates conversations at times. - Goals Timeframe: 7 days Goals: MIN A UE Dressing. MAX A LE dressing. MAX A toileting. MAX A toilet txfers. MAX A bathing. S feeding - Provider Therapist: Nina Infante License Number: [id number] Speech Therapy - Consult Information Patient on Program: Yes Medical Diagnosis: CVA Treatment Diagnosis: mild-moderate cognitive deficits - Assessment Expressive Language Impairment: Mild Problem Solving Impairment: Moderate Memory Impairment: Moderate - Plan Assessment: Pt requires verbal cues for encouragement to participate in sessions. Pt continues to demonstrate mod verbal cues for [id number] direction following and for redirection to task. Pt participates in word finding and direction following tasks. Pt requires mod verbal cues for initiation to task and attention to task. Pt continues to present flat affect although initiates conversations at times. - Provider Therapist: Bonita Berry License Number: [id number] Recreational Therapy - Participation Participation: Participates in Individual and/or Group Sessions - Attendance Attendance: 3-5 times per week - Activities Leisure Activities: Cards and Games - Socialization Level of Socialization: Requires 1:1 guidance to respond, Minimal initiation of interaction to request basic needs - Assessment Assessment/Plan: Pt requires verbal cues for encouragement to participate in sessions. Pt continues to demonstrate mod verbal cues for [id number] direction following and for redirection to task. Pt participates in word finding and direction following tasks. Pt requires mod verbal cues for initiation to task and attention to task. Pt continues to present flat affect although initiates conversations at times. Problems Currently Limiting Participation: flat affect, R UE weakness, decrease family support, decrease leisure awareness level Goals and Time Frame: Pt will be encouraged to participate in 1:1 and group recreation therapy sessions 3-5x week to improve leisure awareness level, utilizing R hand in leisure tasks, problem solving, direction following, and attention to task. - Provider Therapist: She Jimenez, CATERPILLAR TRACTOR OPERATOR #[id number] Nutrition - Current Diet Current Diet/ Supplement/ Feedings: Moderate consistent CHO, heart healthy diet with Glucerna shake BID. - Appetite Percent Meal Consumed: 50-74% - Comments Comments: N/A - Assessment/Goals/Time Frame Assessment/Goals/Time Frame: Goals: 1. Pt to consume 75-100% of meals(not met , continue). 2. Blood glucoses to be between 70-180 mg/dl( met, continue). 3. Deter wt loss(met, continue). Follow-up assessment due by 08/11/17. - Provider Provider: Sandy Hogan MS, RD Case Management - Psychosocial Assessment Support Systems: Jeremias Escoto (son)- [phone]. Anna Urban (daughter)- , Psychological Interventions/Needs: Patient alert, however with flat affect, does not respond to questions. Discharge Concerns: Patient requiring max- total A for bed mobility, transfers, ambulation Patient/Family Meeting: CM met with patient/son and rehab team Intervention/Goal/Outcome:: 1. Plan: [facility] as patient making slow progress in therapy and limited support at home- lengthy discussion held with shailesh Mcdowell regarding patient's progress in therapy and teams' concerns, son aware and in agreement with recommendation for [facility]- Moisés at vs [facility] to initiate referral process, son made aware of possible earlier discharge dependent on insurance authorization, LAD: 08/03, updates to be faxed tomorrow to [phone]. 2. Tentative discharge date: 08/10/2017 dependent on insurance - Discharge Plan Discharge Plan: Subacute care - Provider Provider: HELIO Casas, DATA PROCESSING SPECIALIST License Number: [id number] Rehabilitation Plan - Treatment Plan Treatment Plan: Physical Therapy, Occupational Therapy, Speech, Dietary, Patient /Family Education - Discharge Plan Discharge to: Subacute
--- NOTE | 2017-08-08 13:21 | CP.PCM.PN ---
Subjective - Date & Time of Evaluation Date of Evaluation: 08/08/17 Time of Evaluation: 13:20 - Subjective Subjective: Patient seen in room with family present no significant change at this point. she is going to be going to [facility] guarded overall prognosis for functional recovery at this point Objective - Vital Signs/Intake and Output Vital Signs (last 24 hours): Temp Pulse Resp BP Pulse Ox 97.9 F 74 21 154/76 H 99 08/08/17 09:00 08/08/17 09:00 08/08/17 09:00 08/08/17 09:00 08/08/17 08:46 - Medications Medications: Current Medications Aspirin (Aspirin Chewable) 81 mg PO DAILY [facility] Last Admin: 08/08/17 08:51 Dose: 81 mg Atorvastatin Calcium (Lipitor) 80 mg PO HS [facility] Last Admin: 08/07/17 21:09 Dose: 80 mg Carvedilol (Coreg) 12.5 mg PO Q12 [facility] Last Admin: 08/08/17 08:51 Dose: 12.5 mg Clopidogrel Bisulfate (Plavix) 75 mg PO DAILY [facility] Last Admin: 08/08/17 08:50 Dose: 75 mg Dextrose (Dextrose 50% Inj) 0 ml IV STAT PRN; Protocol PRN Reason: Hypoglycemia Protocol Dextrose (Glutose 15) 0 gm PO ONCE PRN; Protocol PRN Reason: Hypoglycemia Protocol Dimethicone (Proshield Plus Skin Protectant) 1 applic TOP Q8 [facility] Last Admin: 08/08/17 06:04 Dose: 1 applic Docusate Sodium (Colace) 100 mg PO DAILY [facility] Last Admin: 08/08/17 08:51 Dose: 100 mg Enoxaparin Sodium (Lovenox) 30 mg SC DAILY [facility] PRN Reason: Protocol Last Admin: 08/08/17 08:49 Dose: 30 mg Escitalopram Oxalate (Lexapro) 20 mg PO DAILY [facility] Last Admin: 08/08/17 08:49 Dose: 20 mg Furosemide (Lasix) 20 mg PO DAILY [facility] Last Admin: 08/08/17 08:49 Dose: 20 mg Glipizide (Glucotrol Xl) 10 mg PO BRK [facility] Last Admin: 08/08/17 08:51 Dose: 10 mg Glucagon (Glucagen Diagnostic Kit) 0 mg IM STAT PRN; Protocol PRN Reason: Hypoglycemia Protocol Hydralazine HCl (Apresoline) 25 mg PO Q12 PRN PRN Reason: Systolic Blood Pressure Last Admin: 07/27/17 11:20 Dose: 25 mg Hydrocortisone (Anusol-Hc) 1 applic [place] 0600,1800 [facility] Last Admin: 08/08/17 06:03 Dose: 1 applic Hydrocortisone (Cortizone 1% Cream) 1 applic TOP DAILY [facility] Last Admin: 08/08/17 08:48 Dose: 1 applic Insulin Human Lispro (Humalog) 0 units SC 0600,2100 [facility] PRN Reason: Protocol Last Admin: 08/08/17 06:08 Dose: Not Given Losartan Potassium (Cozaar) 100 mg PO DAILY [facility] Last Admin: 08/08/17 08:50 Dose: 100 mg Metformin HCl (Glucophage) 1,000 mg PO BIDWM [facility] Last Admin: 08/08/17 08:50 Dose: 1,000 mg Ondansetron HCl (Zofran Tab) 4 mg PO Q6 PRN PRN Reason: Nausea/Vomiting Last Admin: 07/24/17 09:04 Dose: 4 mg Pantoprazole Sodium (Protonix Ec Tab) 40 mg PO DAILY [facility] Last Admin: 08/08/17 08:50 Dose: 40 mg Sitagliptin Phosphate (Januvia) 100 mg PO DAILY [facility] Last Admin: 08/08/17 08:50 Dose: 100 mg Temazepam (Restoril) 15 mg PO HS PRN PRN Reason: Insomnia Temazepam (Restoril) 15 mg PO HS PRN PRN Reason: Anxiety - Labs Labs: 08/06/17 05:30 08/05/17 06:30
[2017-08-08] MEDS ORDERED: Dextrose 50% SYRINGE Inj (50 ml) IVP ONE (22:15)
[2017-08-09] MEDS: Proshield Plus GEL TOP SCH ×2 (06:36→14:00)
[2017-08-09] MEDS: Hydrocortisone 2.5% (Rectal) CREAM PR SCH ×2 (06:37→17:12)
[2017-08-09] MEDS: Insulin Lispro (humaLOG) 100 Units/ml Inj SC SCH (06:40)
[2017-08-09] MEDS: GlipiZIDE 10 mg SR Tab PO SCH (08:00)
[2017-08-09] MEDS ORDERED: GlipiZIDE 5 mg SR Tab PO SCH (08:06)
[2017-08-09 08:10] VITALS: TEMP 97.3
[2017-08-09] MEDS: Pantoprazole 40 mg EC Tab PO SCH (08:12)
[2017-08-09] MEDS: Enoxaparin 30 mg Syringe SC SCH (08:14)
--- NOTE | 2017-08-09 12:38 | PN ---
DATE: 08/09/2017 SUBJECTIVE: Patient seen and examined. Interim events noted. Patient remains in Acute Rehab Unit. Feels okay. No new complaint. No chest pain. No shortness of breath. PHYSICAL EXAMINATION: GENERAL: Patient is in no acute distress. VITAL SIGNS: Stable. HEART: S1 and S2 normal and regular. LUNGS: Good bilateral air exchange. ABDOMEN: Soft, nontender. EXTREMITIES: No edema. No calf swelling. No tenderness. No acute ischemia. CENTRAL NERVOUS SYSTEM: Essentially unchanged. DIAGNOSTIC DATA: Available diagnostic data reviewed. Patient had episodes of hypoglycemia and telephone order was given. ASSESSMENT AND PLAN: Overall, patient is clinically stable. Plan as ordered. Robert Rios MD
[2017-08-09 19:47] VITALS: RESP 20; O2SAT 97
[2017-08-09 20:14] VITALS: BP 146/72; PULSE 67
== END 2017-08-09 20:40 | DRG 57 ==
PROVIDERS: ADMIT Family Medicine; ATTEND Family Medicine
PROC: F07Z9FZ Gait Training/Functional Ambulation Treatment using Assistive, Adaptive, Supportive or Protective Equipment (ICD-10-PCS; principal; 2017-07-18)
PROC: F08Z4FZ Home Management Treatment using Assistive, Adaptive, Supportive or Protective Equipment (ICD-10-PCS; 2017-07-18)
PROC: F06ZDMZ Swallowing Dysfunction Treatment using Augmentative / Alternative Communication Equipment (ICD-10-PCS; 2017-07-18)
PROC: F07L6FZ Therapeutic Exercise Treatment of Musculoskeletal System - Lower Back / Lower Extremity using Assistive, Adaptive, Supportive or Protective Equipment (ICD-10-PCS; 2017-07-19)
DX: I69.351 Hemiplegia and hemiparesis following cerebral infarction affecting right dominant side (principal); E11.649 Type 2 diabetes mellitus with hypoglycemia without coma; I69.391 Dysphagia following cerebral infarction; R13.19 Other dysphagia; I10 Essential (primary) hypertension; R26.89 Other abnormalities of gait and mobility; K29.00 Acute gastritis without bleeding; E78.5 Hyperlipidemia, unspecified; F32.9 Major depressive disorder, single episode, unspecified; Z79.02 Long term (current) use of antithrombotics/antiplatelets; Z79.82 Long term (current) use of aspirin; Z95.5 Presence of coronary angioplasty implant and graft